=== PATIENT | female | born 1960 | race Caucasian/White ===

== ENCOUNTER 2018-11-03 01:54 | Outpatient (CLI) | payer MEDICARE, MEDICAID, SELFPAY ==
[2018-11-03 09:55] LABS: Abs Immature Grans 0.01 k/cumm (0.0-0.09); Absolute Basophil Count 0.05 k/cumm (0.0-0.2); Absolute Lymphocyte Count 2.64 k/cumm (1.2-3.4); Absolute Monocyte Count 0.51 k/cumm (0.11-0.7); Absolute Neutrophil Count 6.17 k/cumm (1.2-6.7); Basophils % 0.5; Eosinophils % 2.1; HCT 42.6 % (36.0-46.0); HGB 14.1 g/dL (12.0-15.5); Immature Grans % 0.1; Lymphocytes % 27.6; Mean Corp. HGB Concentration 33.1 g/dL (32.0-36.0); Mean Corpuscular Hemoglobin 30.7 pg (27.0-33.0); Mean Corpuscular Volume 92.8 fL (80-95); Mean Platelet Volume 9.3 fL (8.0-11.0); Monocytes % 5.3; Neutrophils % 64.4; Platelet Count 308 x1000/uL (130-400); RBC 4.59 m/cumm (4.00-5.20); RBC Distribution Width 12.3 % (11.7-14.6); White Blood Cell Count 9.58 k/cumm (4.4-10.8)
[2018-11-03 11:20] LABS: ALT 23 U/L (12-78); AST 18 U/L (15-37); Albumin 3.4 g/dL (3.4-5.0); Alkaline Phosphatase 339 U/L (46-116); Anion Gap 8.8 mmol/L (3-11); BUN 11 mg/dL (7-18); Bilirubin, Total 0.4 mg/dL (0.2-1.0); C-Reactive Protein 0.63 mg/dL (0.0-0.3); CO2 29.2 mmol/L (21.0-32.0); CREATININE 0.62 mg/dL (0.55-1.02); Calcium 9.4 mg/dL (8.5-10.1); Chloride 105 mmol/L (98-107); Glucose 104 mg/dL (70-100); Potassium 4.3 mmol/L (3.5-5.1); Sodium 143 mmol/L (136-145)
[2018-11-03 11:21] LABS: ESR 18 MM/HR (0-30)
== END 2018-11-03 02:14 ==
PROVIDERS: PCP Family Medicine; Visit Provider Internal Medicine Rheumatology
DX: M05.9 Rheumatoid arthritis with rheumatoid factor, unspecified (principal); Z79.899 Other long term (current) drug therapy
CPT/HCPCS: 36415; 80053; 85652; 85025; 86140

== ENCOUNTER 2018-12-28 09:54 | Emergency (ER) | payer MEDICARE, MEDICAID, SELFPAY ==
[2018-12-28 10:02] VITALS: BP 119/70; PULSE 95; RESP 20; TEMP 36.8; O2SAT 97
--- NOTE | 2018-12-28 10:15 | W.ED.GENAD ---
Discharge Plan Disposition Patient Disposition: HOME Condition: Stable Discharge Details Chief Complaint: RespSymp Clinical Impression: Infection, respiratory tract Primary Care Provider: Andreea Gould ED Provider: Tima Brandon Home Meds and New Rx's Prescriptions: New doxycycline hyclate 100 mg capsule 100 mg PO BID Qty: 14 RF: 0 benzonatate 200 mg capsule 200 mg PO TID PRN (Reason: cough) Qty: 30 RF: 0 Continued nicotine 14 mg/24 hr patch 24 hour 1 patch TD DAILY Qty: 21 RF: 2 hydroxychloroquine 200 MG tablet 200 mg PO DAILY Qty: 90 RF: 4 pentoxifylline 400 MG tablet extended release 400 mg PO BID Qty: 60 RF: 0 Discharge Instructions Instructions: Cold Symptoms (ED) Additional Instructions: If you begin having high fevers, severe shortness of breath difficulty breathing, or any other concerning symptoms please return to emergency department for reevaluation. Otherwise take medication as prescribed and for the full 7 days. You may also use [id number] Mucinex and stay hydrated and get plenty of rest. If not improving after the antibiotics please follow-up with your primary care provider for reassessment Referrals: Andreea Gould MD [Primary Care Provider] - (if not improving) Discharge Data Discharge Date/Time-TO BE ENTERED AT DEPARTURE: 12/28/18 10:31 Medical Decision Making Patient presenting to the emergency department for greater than 2 weeks of nasal congestion, sore throat, cough, chills. Patient does state some pain from coughing episodes. Patient states that her who is also in the emergency department for evaluation has had similar symptoms for the same amount of time. Patient denies any worsening of symptoms but does state that cough is been fairly persistent. She states chills but denies fever. Exam shows clear lung sounds but diminished in bases, normal cardiac exam without tachycardia, subjective nasal congestion heard during exam but no sinus tenderness, otherwise unremarkable HEENT exam. No signs of obvious meningitis, peritonsillar retropharyngeal abscess, epiglottitis. Patient does have history of lupus and emphysema. Given patient's duration of symptoms and that there has not been any improvement with report of productive cough I do feel that antibiotics are warranted but given clear lung sounds at this time I do not feel that radiological imaging of the chest is required given that this will not change treatment of patient and that patient is nontoxic in appearance with no signs of sepsis. Patient placed up on doxycycline for 7 days and also prescribed Tessalon Perles for cough suppressant. Patient was encouraged to stay hydrated and take Mucinex and follow-up with primary care provider if not improving over the next week. HPI General Mode of arrival: ambulatory. Date/Time Provider Initiated Documentation: 12/28/18 10:04. Limitations to Documentation: no limitations. History of Present Illness 58 year old F presents to the emergency department with the chief complaint of cold symptoms, described as moderate, with intensity rated at 6. and is localized to the chest. Patient started experiencing this week(s) (2+) and it has been constant. No relieving factors improve symptom(s), No exacerbating factors reported . Patient notes no other symptoms.. Patient did receive the following treatments prior to arrival, none Related Data Home Medications Medication Instructions Recorded Confirmed hydroxychloroquine 200 mg PO DAILY #90 tab-cap 08/04/15 12/28/18 pentoxifylline 400 mg PO BID #60 tab-cap 08/08/16 12/28/18 nicotine 14 mg/24 hr daily 1 patch TD DAILY #21 each 09/24/18 12/28/18 transdermal patch benzonatate 200 mg PO TID PRN #30 cap 12/28/18 doxycycline hyclate 100 mg PO BID #14 cap 12/28/18 Previous Rx's Medication Instructions Recorded nicotine 14 mg/24 hr daily 1 patch TD DAILY #21 each 09/24/18 transdermal patch benzonatate 200 mg PO TID PRN #30 cap 12/28/18 doxycycline hyclate 100 mg PO BID #14 cap 12/28/18 Allergies Allergy/AdvReac Type Severity Reaction Status Date / Time aspirin AdvReac Severe high dose Unverified 12/28/18 10:06 palpitations General Stated Complaint: RespSymp ENZO: 3 Review of Systems Constitutional Reports body ache(s), Reports chills, Denies fever(s), Denies headache(s) and Reports malaise Eyes Denies eye discharge ENT Reports as per HPI, Denies ear discharge, Denies otalgia, Denies headache(s), Reports nasal congestion, Reports nasal discharge, Denies neck pain, Denies sinus pain, Reports sinus pressure, Reports sore throat and Denies throat swelling Cardiovascular Reports chest pain and Denies dyspnea Respiratory Reports change in phlegm color, Reports cough, Reports excessive phlegm production, Denies pain on inspiration, Reports pain with cough and Denies dyspnea Musculoskeletal Denies joint swelling and Denies neck pain Integumentary/Breasts Denies rash Neurologic Denies headache(s) Allergic/Immunologic Denies throat swelling ON LICENSE OF [facility] Medical History Anxiety Hypertension Lichen planus Lupus Ovarian carcinoma PVD (peripheral vascular disease) Thromboangiitis obliterans (Buerger's disease) Tobacco use Surgical History Abdominal hysterectomy (07/02/16) Colonoscopy - MAC (02/14/18) Family History Mother Essential hypertension Hyperlipidemia Stroke Father Lung cancer Sister No problems noted. Sister No problems noted. Sister No problems noted. Sister No problems noted. Sister No problems noted. Paternal Grandfather Stroke Social History household members: spouse highest education level completed: high school graduate frequency: 3-4 times per week duration: 15-30 minutes/day Smoking and Tabacco status: Former Tobacco Use alcohol intake: former walt/hindu: No preference special walt needs: No Exam Const General: cooperative, comfortable and no acute distress Orientation: alert and awake HENWA Head: normal to inspection, normocephalic and atraumatic Ears: hearing grossly normal bilaterally and TM's normal bilaterally General nose exam: external nose normal Face and sinus: normal facial exam, sinuses nontender and no erythema Mouth: oral mucosae normal, no drooling, no muffled voice and no trismus Throat: posterior oropharynx normal, tonsils normal and uvula midline Neck Neck: normal visual inspection, full ROM, no lymphadenopathy, no meningeal signs, trachea midline and supple Resp Effort & Inspection: normal respiratory effort, able to speak in complete sentences and cough Quality of cough: dry Auscultation: clear to auscultation bilaterally and diminished lung sounds bilaterally in the lower lung plaza Cardio Rate: regular rate and not tachycardic Rhythm: regular rhythm Heart Sounds: S1 normal, S2 normal, normal S1 and S2, no click, no gallops, no murmurs and no rubs Skin General skin exam: no rashes or lesions noted and dry skin (warm) Neuro General: alert, awake, oriented x3, gait normal and moves all extremities Cognition: normal cognition Speech: speech normal Course Vital Signs Temperature 36.8 C 12/28/18 10:02 Pulse 95 H 12/28/18 10:02 Respiratory Rate 20 12/28/18 10:02 Blood Pressure 119/70 12/28/18 10:02 Pulse Oximetry 97 12/28/18 10:02 Temperature 36.8 C 12/28/18 10:02 Temperature Source Temporal Artery Scan 12/28/18 10:02 Pulse 95 H 12/28/18 10:02 Respiratory Rate 20 12/28/18 10:02 Respiratory Effort Non-Labored 12/28/18 10:07 Respiratory Depth Normal 12/28/18 10:07 Blood Pressure 119/70 12/28/18 10:02 Blood Pressure Position Sitting 12/28/18 10:02 Pulse Oximetry 97 12/28/18 10:02 Oxygen Delivery Method Room Air 12/28/18 10:02 Oxygen Flow Rate 0 12/28/18 10:02 Pain Level 7 12/28/18 10:02
--- NOTE | 2018-12-28 10:22 | ED.GENADUL_ITS ---
Discharge Plan Disposition Patient Disposition: HOME Condition: Stable Discharge Details Chief Complaint: RespSymp Clinical Impression: Infection, respiratory tract Primary Care Provider: Andreea Gould ED Provider: Tima Brandon Home Meds and New Rx's Prescriptions: New doxycycline hyclate 100 mg capsule 100 mg PO BID Qty: 14 RF: 0 benzonatate 200 mg capsule 200 mg PO TID PRN (Reason: cough) Qty: 30 RF: 0 Continued nicotine 14 mg/24 hr patch 24 hour 1 patch TD DAILY Qty: 21 RF: 2 hydroxychloroquine 200 MG tablet 200 mg PO DAILY Qty: 90 RF: 4 pentoxifylline 400 MG tablet extended release 400 mg PO BID Qty: 60 RF: 0 Discharge Instructions Instructions: Cold Symptoms (ED) Additional Instructions: If you begin having high fevers, severe shortness of breath difficulty breathing, or any other concerning symptoms please return to emergency department for reevaluation. Otherwise take medication as prescribed and for the full 7 days. You may also use [id number] Mucinex and stay hydrated and get plenty of rest. If not improving after the antibiotics please follow-up with your primary care provider for reassessment Referrals: Andreea Gould MD [Primary Care Provider] - (if not improving) Discharge Data Discharge Date/Time-TO BE ENTERED AT DEPARTURE: 12/28/18 10:31 Medical Decision Making Patient presenting to the emergency department for greater than 2 weeks of nasal congestion, sore throat, cough, chills. Patient does state some pain from coughing episodes. Patient states that her who is also in the emergency department for evaluation has had similar symptoms for the same amount of time. Patient denies any worsening of symptoms but does state that cough is been fairl y persistent. She states chills but denies fever. Exam shows clear lung sounds but diminished in bases, normal cardiac exam without tachycardia, subjective nasal congestion heard during exam but no sinus tenderness, otherwise unremarkable HEENT exam. No signs of obvious meningitis, peritonsillar retropharyngeal abscess, epiglottitis. Patient does have history of lupus and emphysema. Given patient's duration of symptoms and that there has not been any improvement with report of productive cough I do feel that antibiotics are warranted but given clear lung sounds at this time I do not feel that radiological imaging of the chest is required given that this will not change treatment of patient and that patient is nontoxic in appearance with no signs of sepsis. Patient placed up on doxycycline for 7 days and also prescribed Tessalon Perles for cough suppressant. Patient was encouraged to stay hydrated and take Mucinex and follow-up with primary care provider if not improving over the next week. HPI General Mode of arrival: ambulatory . Date/Time Provider Initiated Documentation: 12/28/18 10:04 . Limitations to Documentation: no limitations . History of Present Illness 58 year old F presents to the emergency department with the chief complaint of cold symptoms, described as moderate, with intensity rated at 6. and is localized to the chest. Patient started experiencing this week(s) (2+) and it has been constant. No relieving factors improve symptom(s), No exacerbating factors reported . Patient notes no other symptoms.. Patient did receive the following treatments prior to arrival, none Related Data Home Medications Medication Instructions Recorded Confirmed hydroxychloroquine 200 mg PO DAILY #90 tab-cap 08/04/15 12/28/18 pentoxifylline 400 mg PO BID #60 tab-cap 08/08/16 12/28/18 nicotine 14 mg/24 hr daily 1 patch TD DAILY #21 each 09/24/18 12/28/18 transdermal patch benzonatate 200 mg PO TID PRN #30 cap 12/28/18 doxycycline hyclate 100 mg PO BID #14 cap 12/28/18 Previous Rx's Medication Instructions Recorded nicotine 14 mg/24 hr daily 1 patch TD DAILY #21 each 09/24/18 transdermal patch benzonatate 200 mg PO TID PRN #30 cap 12/28/18 doxycycline hyclate 100 mg PO BID #14 cap 12/28/18 Allergies Allergy/AdvReac Type Severity Reaction Status Date / Time aspirin AdvReac Severe high dose Unverified 12/28/18 10:06 palpitations General Stated Complaint: RespSymp ENZO: 3 Review of Systems Constitutional Reports body ache(s), Reports chills, Denies fever(s), Denies headache(s) and Reports malaise Eyes Denies eye discharge ENT Reports as per HPI, Denies ear discharge, Denies otalgia, Denies headache(s), Reports nasal congestion, Reports nasal discharge, Denies neck pain, Denies sinus pain, Reports sinus pressure, Reports sore throat and Denies throat swelling Cardiovascular Reports chest pain and Denies dyspnea Respiratory Reports change in phlegm color, Reports cough, Reports excessive phlegm production, Denies pain on inspiration, Reports pain with cough and Denies dyspnea Musculoskeletal Denies joint swelling and Denies neck pain Integumentary/Breasts Denies rash Neurologic Denies headache(s) Allergic/Immunologic Denies throat swelling PFS Medical History Anxiety Hypertension Lichen planus Lupus Ovarian carcinoma PVD (peripheral vascular disease) Thromboangiitis obliterans (Buerger's disease) Tobacco use Surgical History Abdominal hysterectomy (07/02/16) Colonoscopy - MAC (02/14/18) Family History Mother Essential hypertension Hyperlipidemia Stroke Father Lung cancer Sister No problems noted. Sister No problems noted. Sister No problems noted. Sister No problems noted. Sister No problems noted. Paternal Grandfather Stroke Social History household members: spouse highest education level completed: high school graduate frequency: 3-4 times per week duration: 15-30 minutes/day Smoking and Tabacco status: Former Tobacco Use alcohol intake: former walt/jewish: No preference special walt needs: No Exam Const General: cooperative, comfortable and no acute distress Orientation: alert and awake HENMT Head: normal to inspection, normocephalic and atraumatic Ears: hearing grossly normal bilaterally and TM's normal bilaterally General nose exam: external nose normal Face and sinus: normal facial exam, sinuses nontender and no erythema Mouth: oral mucosae normal, no drooling, no muffled voice and no trismus Throat: posterior oropharynx normal, tonsils normal and uvula midline Neck Neck: normal visual inspection, full ROM, no lymphadenopathy, no meningeal signs, trachea midline and supple Resp Effort & Inspection: normal respiratory effort, able to speak in complete sentences and cough Quality of cough: dry Auscultation: clear to auscultation bilaterally and diminished lung sounds bilaterally in the lower lung plaza Cardio Rate: regular rate and not tachycardic Rhythm: regular rhythm Heart Sounds: S1 normal, S2 normal, normal S1 and S2, no click, no gallops, no murmurs and no rubs Skin General skin exam: no rashes or lesions noted and dry skin (warm) Neuro General: alert, awake, oriented x3, gait normal and moves all extremities Cognition: normal cognition Speech: speech normal Course Vital Signs Temperature 36.8 C 12/28/18 10:02 Pulse 95 H 12/28/18 10:02 Respiratory Rate 20 12/28/18 10:02 Blood Pressure 119/70 12/28/18 10:02 Pulse Oximetry 97 12/28/18 10:02 Temperature 36.8 C 12/28/18 10:02 Temperature Source Temporal Artery Scan 12/28/18 10:02 Pulse 95 H 12/28/18 10:02 Respiratory Rate 20 12/28/18 10:02 Respiratory Effort Non-Labored 12/28/18 10:07 Respiratory Depth Normal 12/28/18 10:07 Blood Pressure 119/70 12/28/18 10:02 Blood Pressure Position Sitting 12/28/18 10:02 Pulse Oximetry 97 12/28/18 10:02 Oxygen Delivery Method Room Air 12/28/18 10:02 Oxygen Flow Rate 0 12/28/18 10:02 Pain Level 7 12/28/18 10:02
[2018-12-28 10:31] VITALS: BP 119/70; PULSE 95; RESP 20; TEMP 36.8; O2SAT 97
[2018-12-28] MEDS: Doxycycline Hyclate 100 MG CAP PO (10:31)
== END 2018-12-28 10:31 | disposition home or self-care (01) ==
PROVIDERS: Emergency Provider Nurse Practitioner Family; PCP Family Medicine
DX: J06.9 Acute upper respiratory infection, unspecified (principal); I10 Essential (primary) hypertension; Z87.891 Personal history of nicotine dependence
CPT/HCPCS: 99283

== ENCOUNTER 2019-02-09 01:54 | Outpatient (CLI) | payer MEDICARE, SELFPAY ==
[2019-02-09 11:28] LABS: Abs Immature Grans 0.03 k/cumm (0.0-0.09); Absolute Basophil Count 0.05 k/cumm (0.0-0.2); Absolute Eosinophil Count 0.22 k/cumm (0.0-0.7); Absolute Lymphocyte Count 3.14 k/cumm (1.2-3.4); Absolute Monocyte Count 0.69 k/cumm (0.11-0.7); Absolute Neutrophil Count 6.07 k/cumm (1.2-6.7); Basophils % 0.5; Eosinophils % 2.2; HCT 41.4 % (36.0-46.0); HGB 13.6 g/dL (12.0-15.5); Immature Grans % 0.3; Lymphocytes % 30.8; Mean Corp. HGB Concentration 32.9 g/dL (32.0-36.0); Mean Corpuscular Hemoglobin 30.1 pg (27.0-33.0); Mean Corpuscular Volume 91.6 fL (80-95); Mean Platelet Volume 9.2 fL (8.0-11.0); Monocytes % 6.8; Neutrophils % 59.4; Platelet Count 329 x1000/uL (130-400); RBC 4.52 m/cumm (4.00-5.20); RBC Distribution Width 12.2 % (11.7-14.6)
[2019-02-09 12:14] LABS: ALT 26 U/L (12-78); AST 19 U/L (15-37); Albumin 3.6 g/dL (3.4-5.0); Alkaline Phosphatase 420 U/L (46-116); Anion Gap 9.2 mmol/L (3-11); BUN 10 mg/dL (7-18); Bilirubin, Total 0.3 mg/dL (0.2-1.0); CO2 28.8 mmol/L (21.0-32.0); CREATININE 0.62 mg/dL (0.55-1.02); Calcium 9.3 mg/dL (8.5-10.1); Chloride 101 mmol/L (98-107); Glucose 89 mg/dL (70-100); Sodium 139 mmol/L (136-145); Total Protein 7.5 g/dL (6.4-8.2)
[2019-02-10 09:34] LABS: CA 125 9 U/mL (0-30)
== END 2019-02-09 02:14 ==
PROVIDERS: Obstetrics & Gynecology Gynecologic Oncology; PCP Family Medicine; Visit Provider Radiology Radiation Oncology
DX: C56.9 Malignant neoplasm of unspecified ovary (principal)
CPT/HCPCS: 36415; 80053; 86304; 85025

== ENCOUNTER 2019-03-10 02:29 | Outpatient (CLI) | payer MEDICARE, SELFPAY ==
[2019-03-10 10:34] LABS: HCT 37.4 % (36.0-46.0); HGB 12.1 g/dL (12.0-15.5); Mean Corp. HGB Concentration 32.4 g/dL (32.0-36.0); Mean Corpuscular Hemoglobin 30.1 pg (27.0-33.0); Mean Platelet Volume 10.8 fL (8.0-11.0); Platelet Count 198 x1000/uL (130-400); RBC 4.02 m/cumm (4.00-5.20); RBC Distribution Width 12.9 % (11.7-14.6); White Blood Cell Count 12.99 k/cumm (4.4-10.8)
[2019-03-10 10:51] LABS: Absolute Basophil Count 0.13 k/cumm (0.0-0.2); Absolute Eosinophil Count 0.13 k/cumm (0.0-0.7); Absolute Monocyte Count 1.43 k/cumm (0.11-0.7); Absolute Neutrophil Count 8.83 k/cumm (1.2-6.7)
[2019-03-10 10:52] LABS: Diff Comment Manual Differential; RBC Morphology Normal
== END 2019-03-10 02:49 ==
PROVIDERS: PCP Family Medicine; Visit Provider Obstetrics & Gynecology Gynecologic Oncology
DX: C56.9 Malignant neoplasm of unspecified ovary (principal)
CPT/HCPCS: 36415; 85025

== ENCOUNTER 2019-03-17 09:22 | Outpatient (CLI) | payer MEDICARE, SELFPAY ==
[2019-03-17 09:46] LABS: Absolute Basophil Count 0.07 k/cumm (0.0-0.2); Absolute Eosinophil Count 0.03 k/cumm (0.0-0.7); Absolute Lymphocyte Count 1.63 k/cumm (1.2-3.4); Absolute Monocyte Count 0.63 k/cumm (0.11-0.7); Absolute Neutrophil Count 8.14 k/cumm (1.2-6.7); Basophils % 0.7; Eosinophils % 0.3; HCT 38.4 % (36.0-46.0); HGB 12.6 g/dL (12.0-15.5); Immature Grans % 0.9; Lymphocytes % 15.4; Mean Corp. HGB Concentration 32.8 g/dL (32.0-36.0); Mean Corpuscular Hemoglobin 30.2 pg (27.0-33.0); Mean Corpuscular Volume 92.1 fL (80-95); Mean Platelet Volume 9.4 fL (8.0-11.0); Monocytes % 5.9; Neutrophils % 76.8; Platelet Count 256 x1000/uL (130-400); RBC 4.17 m/cumm (4.00-5.20); RBC Distribution Width 13.5 % (11.7-14.6)
== END 2019-03-17 09:42 ==
PROVIDERS: PCP Family Medicine; Visit Provider Obstetrics & Gynecology Gynecologic Oncology
DX: C56.9 Malignant neoplasm of unspecified ovary (principal)
CPT/HCPCS: 36415; 85025

== ENCOUNTER 2019-03-21 02:16 | Outpatient (CLI) | payer MEDICARE, SELFPAY ==
[2019-03-21 09:38] LABS: Abs Immature Grans 0.02 k/cumm (0.0-0.09); Absolute Basophil Count 0.03 k/cumm (0.0-0.2); Absolute Eosinophil Count 0.01 k/cumm (0.0-0.7); Absolute Lymphocyte Count 1.16 k/cumm (1.2-3.4); Absolute Monocyte Count 0.49 k/cumm (0.11-0.7); Absolute Neutrophil Count 5.65 k/cumm (1.2-6.7); Basophils % 0.4; Eosinophils % 0.1; HCT 39.6 % (36.0-46.0); HGB 12.6 g/dL (12.0-15.5); Immature Grans % 0.3; Lymphocytes % 15.8; Mean Corp. HGB Concentration 31.8 g/dL (32.0-36.0); Mean Corpuscular Hemoglobin 29.4 pg (27.0-33.0); Mean Corpuscular Volume 92.3 fL (80-95); Mean Platelet Volume 9.5 fL (8.0-11.0); Monocytes % 6.7; Neutrophils % 76.7; Platelet Count 347 x1000/uL (130-400); RBC 4.29 m/cumm (4.00-5.20); RBC Distribution Width 13.7 % (11.7-14.6); White Blood Cell Count 7.36 k/cumm (4.4-10.8)
[2019-03-21 09:51] LABS: ALT 22 U/L (12-78); AST 16 U/L (15-37); Alkaline Phosphatase 174 U/L (46-116); Anion Gap 6.7 mmol/L (3-11); BUN 4 mg/dL (7-18); Bilirubin, Total 0.2 mg/dL (0.2-1.0); CO2 28.3 mmol/L (21.0-32.0); CREATININE 0.66 mg/dL (0.55-1.02); Calcium 8.2 mg/dL (8.5-10.1); Chloride 104 mmol/L (98-107); Glucose 113 mg/dL (70-100); Potassium 3.7 mmol/L (3.5-5.1); Sodium 139 mmol/L (136-145); Total Protein 7.1 g/dL (6.4-8.2)
[2019-03-23 11:13] LABS: CA 125 6 U/mL (0-30)
== END 2019-03-21 02:36 ==
PROVIDERS: Obstetrics & Gynecology Gynecologic Oncology; PCP Family Medicine; Visit Provider Family Medicine
DX: C56.9 Malignant neoplasm of unspecified ovary (principal)
CPT/HCPCS: 36415; 80053; 86304; 85025

== ENCOUNTER 2019-03-31 01:44 | Outpatient (CLI) | payer MEDICARE, SELFPAY ==
[2019-03-31 10:10] LABS: Abs Immature Grans 1.55 k/cumm (0.0-0.09); HCT 34.1 % (36.0-46.0); HGB 11.2 g/dL (12.0-15.5); Mean Corp. HGB Concentration 32.8 g/dL (32.0-36.0); Mean Corpuscular Hemoglobin 30.5 pg (27.0-33.0); Mean Corpuscular Volume 92.9 fL (80-95); Mean Platelet Volume 10.6 fL (8.0-11.0); RBC 3.67 m/cumm (4.00-5.20)
[2019-03-31 10:40] LABS: Absolute Basophil Count 0.14 k/cumm (0.0-0.2); Absolute Eosinophil Count 0.42 k/cumm (0.0-0.7); Absolute Lymphocyte Count 1.83 k/cumm (1.2-3.4); Absolute Monocyte Count 4.09 k/cumm (0.11-0.7); Absolute Neutrophil Count 7.61 k/cumm (1.2-6.7); Platelet Count 175 x1000/uL (130-400)
[2019-03-31 10:41] LABS: Diff Comment Manual Differential
[2019-03-31 10:42] LABS: RBC Morphology Normal
== END 2019-03-31 02:04 ==
PROVIDERS: PCP Family Medicine; Visit Provider Obstetrics & Gynecology Gynecologic Oncology
DX: C56.9 Malignant neoplasm of unspecified ovary (principal)
CPT/HCPCS: 36415; 85025

== ENCOUNTER 2019-04-06 02:47 | Outpatient (CLI) | payer MEDICARE, SELFPAY ==
[2019-04-06 10:24] LABS: HCT 35.2 % (36.0-46.0); HGB 11.4 g/dL (12.0-15.5); Mean Corp. HGB Concentration 32.4 g/dL (32.0-36.0); Mean Corpuscular Hemoglobin 30.6 pg (27.0-33.0); Mean Corpuscular Volume 94.4 fL (80-95); Mean Platelet Volume 10.2 fL (8.0-11.0); Platelet Count 291 x1000/uL (130-400); RBC 3.73 m/cumm (4.00-5.20); RBC Distribution Width 14.7 % (11.7-14.6); White Blood Cell Count 17.98 k/cumm (4.4-10.8)
[2019-04-06 11:30] LABS: Absolute Neutrophil Count 15.46 k/cumm (1.2-6.7); Atypical Lymphocytes % 1
[2019-04-06 11:31] LABS: Absolute Monocyte Count 0.72 k/cumm (0.11-0.7); Diff Comment Manual Differential; RBC Morphology Normal
== END 2019-04-06 03:07 ==
PROVIDERS: PCP Family Medicine; Visit Provider Obstetrics & Gynecology Gynecologic Oncology
DX: C56.9 Malignant neoplasm of unspecified ovary (principal)
CPT/HCPCS: 36415; 85025

== ENCOUNTER 2019-04-10 01:14 | Outpatient (CLI) | payer MEDICARE, SELFPAY ==
[2019-04-10 15:25] LABS: Abs Immature Grans 0.03 k/cumm (0.0-0.09); Absolute Basophil Count 0.04 k/cumm (0.0-0.2); Absolute Eosinophil Count 0.02 k/cumm (0.0-0.7); Absolute Lymphocyte Count 1.85 k/cumm (1.2-3.4); Absolute Monocyte Count 0.62 k/cumm (0.11-0.7); Absolute Neutrophil Count 6.44 k/cumm (1.2-6.7); Basophils % 0.4; Eosinophils % 0.2; HCT 34.3 % (36.0-46.0); HGB 11.1 g/dL (12.0-15.5); Immature Grans % 0.3; Lymphocytes % 20.6; Mean Corp. HGB Concentration 32.4 g/dL (32.0-36.0); Mean Corpuscular Volume 92.7 fL (80-95); Mean Platelet Volume 9.4 fL (8.0-11.0); Monocytes % 6.9; Neutrophils % 71.6; Platelet Count 326 x1000/uL (130-400)
[2019-04-10 16:14] LABS: ALT 30 U/L (12-78); AST 20 U/L (15-37); Albumin 3.3 g/dL (3.4-5.0); Alkaline Phosphatase 136 U/L (46-116); Anion Gap 9.5 mmol/L (3-11); BUN 11 mg/dL (7-18); Bilirubin, Total 0.3 mg/dL (0.2-1.0); CO2 26.5 mmol/L (21.0-32.0); CREATININE 0.61 mg/dL (0.55-1.02); Calcium 8.8 mg/dL (8.5-10.1); Chloride 101 mmol/L (98-107); Glucose 113 mg/dL (70-100); Potassium 3.7 mmol/L (3.5-5.1); Sodium 137 mmol/L (136-145); Total Protein 6.7 g/dL (6.4-8.2)
== END 2019-04-10 01:34 ==
PROVIDERS: PCP Family Medicine; Visit Provider Obstetrics & Gynecology Gynecologic Oncology
DX: C56.9 Malignant neoplasm of unspecified ovary (principal)
CPT/HCPCS: 36415; 80053; 85025

== ENCOUNTER 2019-04-17 12:17 | Emergency (ER) | payer MEDICARE, SELFPAY ==
[2019-04-17] VITALS (12 sets, daily range): BP systolic 103–119; BP diastolic 60–93; PULSE 91–101; RESP 16–33; TEMP 36.5; O2SAT 92–97
--- NOTE | 2019-04-17 12:58 | ED.GENADUL_ITS ---
Discharge Plan Disposition Patient Disposition: HOME Condition: Good Discharge Details Chief Complaint: SOB Clinical Impression: Oropharyngeal candidiasis, Dyspnea, History of COPD, History of recent chemotherapy Primary Care Provider: Andreea Gould ED Provider: Kristy Salazar Home Meds and New Rx's Prescriptions: New nystatin 100,000 unit/mL suspension 5 ml PO QID 10 Days Qty: 200 RF: 0 Continued hydroxychloroquine 200 MG tablet 200 mg PO DAILY Qty: 90 RF: 4 pentoxifylline 400 MG tablet extended release 400 mg PO BID Qty: 60 RF: 0 lorazepam 0.5 mg Tablet 0.5 mg PO PRN PRNRF: 0 oxycodone 10 mg Tablet 10 mg PO PRN PRNRF: 0 Discharge Instructions Instructions: Oral Candidiasis (ED), Dyspnea (ED) Additional Instructions: Drink plenty of fluids and get plenty of rest. Use the nystatin solution as directed. Use the albuterol inhaler as needed and directed. Call your oncologist today to schedule a follow-up appointment for reevaluation next week. Return immediately to the emergency department with any worsening or new concerning symptoms. 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 Vitals within normal limits. Afebrile. Patient appears nontoxic. She has noted thrush to tongue and posterior pharynx. Diminished breath sounds throughout with scattered rhonchi but no obvious wheezing. No signs of airway compromise or respiratory distress. Differential diagnosis includes strep pharyngitis, pneumonia, NC, PE, COPD exacerbation, viral syndrome, chemotherapy reaction, electrolyte abnormality. EKG notes a rate of 91 and sinus with no acute ST findings. Will place an IV, small bolus IV fluids, labs, urinalysis, rapid strep, CT chest. Will give Magic mouthwash and DuoNeb and reassess. 1430 --labs and imaging reviewed. White blood cell count 13. 10 bands. Mag 1.3, will replete. Troponin negative. Urinalysis negative. CT chest negative for pneumonia, PE, dissection. Patient states she feels much better. Breath sounds improved. 1500 --discussed with [facility] oncology cost controller Dr. Gama --state that the leukocytosis and bandemia is an expected finding after patient's chemotherapy treatment with carboTaxol and carboplatin. Discussed that patient feels better, is hemodynamically stable, and appears nontoxic -no other acute recommendations at this time and agreeable with plan for discharge home. Will send home with a prescription for nystatin as well as albuterol inhaler. Discussed with patient that I do not think she needs steroids or antibiotics at this time and she is agreeable. She is instructed to call her oncologist to schedule a follow-up appointment for reevaluation and to return here with any worsening symptoms. Medical Records Medical records reviewed: Yes I reviewed the patient's medical records. Imaging Data Radiologic Study: Radiologist's impression: CT SCAN OF THE CHEST: CT scan of the chest was performed according to the pulmonary embolus protocol. There are nodular densities seen in the right lobe of the thyroid gland. Nonemergent thyroid ultrasound may be considered for further evaluation. There is no evidence of a pulmonary embolus. The thoracic aorta is of normal caliber. No aneurysm or dissection is seen. The heart size is within normal limits. No evidence of a pericardial effusion is seen. No evidence of right ventricular dysfunction is present. No significant thoracic adenopathy, pleural effusion or pneumothorax is identified. Mild emphysematous changes are seen in the lungs. No focal consolidating infiltrates are present. There is mild atelectasis in the dependent portions of the lungs. No acute osseous abnormalities identified. IMPRESSION: No evidence of a pulmonary embolus, thoracic aortic dissection or aneurysm. Lab Data Lab results reviewed: Yes I reviewed the patient's lab results. 04/17/19 13:57 Blood Blood Culture - Pending 04/17/19 13:45 Blood Blood Culture - Pending Laboratory Tests Range/Units 04/17/19 04/17/19 04/17/19 13:10 13:10 13:26 WBC (4.4-10.8) k/cumm 37.19 H* RBC (4.00-5.20) m/cumm 3.62 L Hgb (12.0-15.5) g/dL 11.2 L Hct (36.0-46.0) % 34.3 L MCV (80-95) fL 94.8 MCH (27.0-33.0) pg 30.9 MCHC (32.0-36.0) g/dL 32.7 RDW (11.7-14.6) % 15.0 H Plt Count (130-400) x1000/uL 154 D MPV (8.0-11.0) fL 10.7 Immature Gran % See Differential Neutrophils % 82.0 Band Neutrophils % % 10.0 Lymphocytes % 3.0 Monocytes % 1.0 Eosinophils % 0.0 Basophils % 0.0 Metamyelocytes % % 1.0 Myelocytes % % 3.0 Promyelocytes % % 0 Absolute Neutrophils (1.2-6.7) k/cumm 34.21 H Absolute Lymphocytes (1.2-3.4) k/cumm 1.12 L Absolute Monocytes (0.11-0.7) k/cumm 0.37 Absolute Eosinophils (0.0-0.7) k/cumm 0.00 Absolute Basophils (0.0-0.2) k/cumm 0.00 Differential Comment Manual differential RBC Morphology See below Anisocytosis 1+ Target Cells 2+ Sodium (136-145) mmol/L 134 L Potassium (3.5-5.1) mmol/L 3.5 Chloride (98-107) mmol/L 98 Carbon Dioxide (21.0-32.0) mmol/L 31.1 Anion Gap (3-11) mmol/L 4.9 BUN (7-18) mg/dL 12 Creatinine (0.55-1.02) mg/dL 0.52 L Estimated GFR/1.73 m2 (mL/min/1.73m2) >= 60.00 Glucose (70-100) mg/dL 99 Lactate (0.6-1.4) mmol/l Calcium (8.5-10.1) mg/dL 8.8 Magnesium (1.8-2.4) mg/dL 1.3 L Total Bilirubin (0.2-1.0) mg/dL 0.6 AST (15-37) U/L 15 ALT (12-78) U/L 20 Alkaline Phosphatase (46-116) U/L 118 H Troponin I (0.00-0.06) ng/mL < 0.02 Total Protein (6.4-8.2) g/dL 6.2 L Albumin (3.4-5.0) g/dL 2.9 L Urine Color (Yellow) Yellow Urine Clarity Clear Urine pH (5-8) 6.0 Ur Specific [place] (1.005-1.025) <= 1.005 Urine Protein (Negative) mg/dL Negative Urine Ketones (Negative) mg/dL Negative Urine Blood (Negative) Trace-intact H Urine Nitrite (Negative) Negative Urine Bilirubin (Negative) Negative Urine Urobilinogen (Up TO 0.2) EU/dL 0.2 Ur Leukocyte Esterase (Negative) Negative Urine RBC (0-2) 0-2 Urine WBC (0-5) HPF 0-2 Ur Epithelial Cells (Negative) HPF Rare Urine Crystals (Negative) HPF Negative Urine Bacteria (Negative) HPF Negative Urine Casts (Negative) LPF Negative Urine Mucus (Negative) Negative Ur Culture Indicated? No Urine Glucose (Negative) mg/dL Negative Range/Units 04/17/19 13:57 WBC (4.4-10.8) k/cumm RBC (4.00-5.20) m/cumm Hgb (12.0-15.5) g/dL Hct (36.0-46.0) % MCV (80-95) fL MCH (27.0-33.0) pg MCHC (32.0-36.0) g/dL RDW (11.7-14.6) % Plt Count (130-400) x1000/uL MPV (8.0-11.0) fL Immature Gran % Neutrophils % Band Neutrophils % % Lymphocytes % Monocytes % Eosinophils % Basophils % Metamyelocytes % % Myelocytes % % Promyelocytes % % Absolute Neutrophils (1.2-6.7) k/cumm Absolute Lymphocytes (1.2-3.4) k/cumm Absolute Monocytes (0.11-0.7) k/cumm Absolute Eosinophils (0.0-0.7) k/cumm Absolute Basophils (0.0-0.2) k/cumm Differential Comment RBC Morphology Anisocytosis Target Cells Sodium (136-145) mmol/L Potassium (3.5-5.1) mmol/L Chloride (98-107) mmol/L Carbon Dioxide (21.0-32.0) mmol/L Anion Gap (3-11) mmol/L BUN (7-18) mg/dL Creatinine (0.55-1.02) mg/dL Estimated GFR/1.73 m2 (mL/min/1.73m2) Glucose (70-100) mg/dL Lactate (0.6-1.4) mmol/l 1.0 Calcium (8.5-10.1) mg/dL Magnesium (1.8-2.4) mg/dL Total Bilirubin (0.2-1.0) mg/dL AST (15-37) U/L ALT (12-78) U/L Alkaline Phosphatase (46-116) U/L Troponin I (0.00-0.06) ng/mL Total Protein (6.4-8.2) g/dL Albumin (3.4-5.0) g/dL Urine Color (Yellow) Urine Clarity Urine pH (5-8) Ur Specific [place] (1.005-1.025) Urine Protein (Negative) mg/dL Urine Ketones (Negative) mg/dL Urine Blood (Negative) Urine Nitrite (Negative) Urine Bilirubin (Negative) Urine Urobilinogen (Up TO 0.2) EU/dL Ur Leukocyte Esterase (Negative) Urine RBC (0-2) Urine WBC (0-5) HPF Ur Epithelial Cells (Negative) HPF Urine Crystals (Negative) HPF Urine Bacteria (Negative) HPF Urine Casts (Negative) LPF Urine Mucus (Negative) Ur Culture Indicated? Urine Glucose (Negative) mg/dL ECG Data Attestation: I personally reviewed and interpreted this ECG (s) as follows: Interpretation: Rate of 91, sinus, no acute ST elevation or depression. QTc 394. QRS 92 HPI General Mode of arrival: ambulatory . Date/Time Provider Initiated Documentation: 04/17/19 12:18 . Limitations to Documentation: no limitations . Information obtained by: patient . HPI Narrative: Patient is a 58-year-old fe male with a history of metastatic ovarian cancer to lung and bone, hypertension, COPD, anxiety, peripheral vascular disease, lupus who presents with sore throat, shortness of breath and body aches for the past 2 days. Patient states she had her last chemo treatment 3 days ago at [facility] and developed a reaction during the infusion with arm and facial flushing. She states the facial and arm flu shing resolved with Benadryl and steroids and then shortly after she developed shortness of breath, body aches and sore throat. She states since then she has had difficulty breathing worse with laying flat and with exertion. She admits to cough with white mucus. She also admits to intermittent dizziness. She states she has been drinking but eating less than usual. She denies any known fever, vomiting or diarrhea. She states she was first diagnosed with ovarian cancer in 2016 and was told it progressed to her lung and bone recently. She restarted her chemo last month and has had her third treatment since then. She states her second treatment earlier this month also resulted in facial and forearm flushing as well as shortness of breath but states the symptoms are much worse this time. Related Data Home Medications Medication Instructions Recorded Confirmed hydroxychloroquine 200 mg PO DAILY #90 tab-cap 08/04/15 04/17/19 pentoxifylline 400 mg PO BID #60 tab-cap 08/08/16 04/17/19 lorazepam 0.5 mg PO PRN PRN 04/17/19 04/17/19 nystatin 5 ml PO QID 10 Days #200 ml 04/17/19 oxycodone 10 mg PO PRN PRN 04/17/19 04/17/19 Previous Rx's Medication Instructions Recorded nystatin 5 ml PO QID 10 Days #200 ml 04/17/19 Allergies Allergy/AdvReac Type Severity Reaction Status Date / Time aspirin AdvReac Severe high dose Unverified 04/17/19 12:27 palpitations General Stated Complaint: SOB ENZO: 3 Review of Systems Review of Systems All systems reviewed & are unremarkable except as noted in HPI and below Constitutional Reports as per HPI, Denies chills and Denies fever(s) Eyes Denies blurry vision ENT Reports dizziness, Reports sore throat and Denies throat swelling Cardiovascular Denies chest pain and Reports dyspnea Respiratory Denies cough and Reports dyspnea Gastrointestinal Denies abdominal pain, Denies diarrhea and Denies vomiting Genitourinary Denies hematuria and Denies dysuria Musculoskeletal Denies back pain and Denies numbness Integumentary/Breasts Denies lesions and Denies rash Neurologic Reports dizziness, Denies focal weakness and Denies numbness Allergic/Immunologic Denies throat swelling [facility] Medical History Anxiety Hypertension Lichen planus Lupus Ovarian carcinoma PVD (peripheral vascular disease) Thromboangiitis obliterans (Buerger's disease) Tobacco use Surgical History Abdominal hysterectomy (07/02/16) Colonoscopy - MAC (02/14/18) Family History Mother Essential hypertension Hyperlipidemia Stroke Father Lung cancer Sister No problems noted. Sister No problems noted. Sister No problems noted. Sister No problems noted. Sister No problems noted. Paternal Grandfather Stroke Social History Smoking/Tobacco Use Status: Former Tobacco Use Alcohol Intake: former Drug use: Never Household members: spouse Duration: 15-30 minutes/day Frequency: 3-4 times per week Estefany/Anglican: No preference Special estefany needs: No Do you feel safe at home: Yes Do you feel safe in your relationship?: Yes Exam Const General: cooperative and healthy appearing Orientation: alert and awake HENMT Head: normal to inspection Ears: hearing grossly normal bilaterally, external ears normal and TM's normal bilaterally General nose exam: external nose normal Face and sinus: normal facial exam Mouth: oral mucosa abnormal white patches (noted on tongue, palate, posterior pharynx) Teeth and gingiva: dentition normal Throat: posterior oropharynx abnormal other (white patches, erythema); no exudates Eyes General: appearance normal, both eyes and all related structures Eyelids: eyelids normal Pupils: PERRL EOM: EOM intact bilaterally Neck Neck: normal visual inspection Lymphatic: no lymphadenopathy noted Chest Chest: normal inspection of the chest Resp Effort & Inspection: normal respiratory effort and not able to speak in complete sentences (speaks in 3-4 word sentences) Auscultation: diminished lung sounds bilaterally throughout Cardio Rate: regular rate Rhythm: regular rhythm GI Inspection: normal to inspection Palpation: soft, not firm, no guarding, no hepatosplenomegaly, no masses and nontender Auscultation: normal bowel sounds Skin General skin exam: no rashes or lesions noted Neuro General: alert and awake Cognition: normal cognition Speech: speech normal Gait: normal gait Motor: muscle tone normal throughout Sensory Exam: no sensory deficits noted Extrem General: normal to inspection, full ROM and no edema Psych Appearance: grossly normal Mental Status: mental status grossly normal Speech and Movement: speech and movement normal Affect: normal affect Thought Process: normal Course Vital Signs Temperature 97.7 F 04/17/19 12:24 Pulse 95 H 04/17/19 12:24 Respiratory Rate 20 04/17/19 12:24 Blood Pressure 119/93 H 04/17/19 12:24 Pulse Oximetry 96 04/17/19 12:24 Temperature 97.7 F 04/17/19 12:24 Temperature Source Temporal Artery Scan 04/17/19 12:24 Pulse 95 H 04/17/19 12:24 Respiratory Rate 16 04/17/19 12:29 Respiratory Effort Non-Labored 04/17/19 12:29 Respiratory Depth Normal 04/17/19 12:29 Respiratory Pattern Normal 04/17/19 12:29 Blood Pressure 119/93 H 04/17/19 12:24 Pulse Oximetry 96 04/17/19 12:24 Oxygen Delivery Method Room Air 04/17/19 12:24 Oxygen Flow Rate 0 04/17/19 12:24 Pain Level 8 04/17/19 12:24
[2019-04-17 13:15] LABS: Abs Immature Grans 6.56 k/cumm (0.0-0.09); HCT 34.3 % (36.0-46.0); HGB 11.2 g/dL (12.0-15.5); Mean Corp. HGB Concentration 32.7 g/dL (32.0-36.0); Mean Corpuscular Hemoglobin 30.9 pg (27.0-33.0); Mean Corpuscular Volume 94.8 fL (80-95); Mean Platelet Volume 10.7 fL (8.0-11.0); RBC 3.62 m/cumm (4.00-5.20)
[2019-04-17 13:25] LABS: White Blood Cell Count 37.19 k/cumm (4.4-10.8)
[2019-04-17] MEDS: Albuterol/Ipratropium 3 ML UPD VIAL UPD (13:27)
[2019-04-17] MEDS: Magic Mouthwash 119 ML BTL 10 ML PO (13:28)
[2019-04-17 13:32] LABS: ALT 20 U/L (12-78); AST 15 U/L (15-37); Albumin 2.9 g/dL (3.4-5.0); Alkaline Phosphatase 118 U/L (46-116); Anion Gap 4.9 mmol/L (3-11); BUN 12 mg/dL (7-18); Bilirubin, Total 0.6 mg/dL (0.2-1.0); CO2 31.1 mmol/L (21.0-32.0); CREATININE 0.52 mg/dL (0.55-1.02); Calcium 8.8 mg/dL (8.5-10.1); Chloride 98 mmol/L (98-107); Glucose 99 mg/dL (70-100); Magnesium 1.3 mg/dL (1.8-2.4); Potassium 3.5 mmol/L (3.5-5.1); Sodium 134 mmol/L (136-145); Total Protein 6.2 g/dL (6.4-8.2); Troponin I < 0.02 ng/mL (0.00-0.06)
[2019-04-17 13:34] LABS: Bilirubin Negative (Negative); Blood Trace-intact (Negative); Clarity Clear; Glucose Negative (Negative); Ketones Negative (Negative); Leukocyte Esterase Negative (Negative); Nitrite Negative (Negative); Specific Gravity <= 1.005 (1.005-1.025); Urobilinogen 0.2 EU/dL (Up TO 0.2)
[2019-04-17 13:50] LABS: WBC 0-2 HPF (0-5)
[2019-04-17 13:51] LABS: Bacteria Negative HPF (Negative); C & S Indicated? No; Casts Negative LPF (Negative); Crystals Negative HPF (Negative); Epithelial Cells Rare HPF (Negative); Mucus Negative (Negative); RBC 0-2 (0-2)
[2019-04-17 14:13] LABS: Absolute Lymphocyte Count 1.12 k/cumm (1.2-3.4); Absolute Monocyte Count 0.37 k/cumm (0.11-0.7); Absolute Neutrophil Count 34.21 k/cumm (1.2-6.7); Platelet Count 154 x1000/uL (130-400); Promyelocytes % 0 %
[2019-04-17 14:14] LABS: Anisocytosis 1+
[2019-04-17 14:15] LABS: Diff Comment Manual Differential
--- NOTE | 2019-04-17 14:25 | DI.CT_ITS ---
SYMPTOMS/DIAGNOSIS: SHORTNESS OF BREATH, RECENT CHEMO, ? PE CT SCAN OF THE CHEST: CT scan of the chest was performed according to the pulmonary embolus protocol. There are nodular densities seen in the right lobe of the thyroid gland. Nonemergent thyroid ultrasound may be considered for further evaluation. There is no evidence of a pulmonary embolus. The thoracic aorta is of normal caliber. No aneurysm or dissection is seen. The heart size is within normal limits. No evidence of a pericardial effusion is seen. No evidence of right ventricular dysfunction is present. No significant thoracic adenopathy, pleural effusion or pneumothorax is identified. Mild emphysematous changes are seen in the lungs. No focal consolidating infiltrates are present. There is mild atelectasis in the dependent portions of the lungs. No acute osseous abnormalities identified. IMPRESSION: No evidence of a pulmonary embolus, thoracic aortic dissection or aneurysm. The findings were discussed with the Emergency Department on the date of the examination.
[2019-04-17] MEDS: MAGNESIUM SULFATE 1 GM/100 ML BAG IVPB (14:26)
[2019-04-17] MEDS: Normal Saline 250 ML IV (14:26)
[2019-04-17] MEDS: Omnipaque 350 MG/ML 100 ML BTL 61 ML IJ (14:26)
[2019-04-17] MEDS: Normal Saline Flush 10 ML SYR IVP (14:27)
[2019-04-17] MEDS: Heparin 500 UNITS/5 ML SYRINGE (17:54)
[2019-04-17] MEDS: Albuterol HFA 8 GM 60 PUFF INH IH (17:54)
== END 2019-04-17 16:14 | disposition home or self-care (01) ==
PROVIDERS: Emergency Provider Physician Assistant; PCP Family Medicine
DX: B37.0 Candidal stomatitis (principal); R06.00 Dyspnea, unspecified; J44.9 Chronic obstructive pulmonary disease, unspecified; C56.9 Malignant neoplasm of unspecified ovary; C78.00 Secondary malignant neoplasm of unspecified lung; Z92.21 Personal history of antineoplastic chemotherapy
CPT/HCPCS: 36410; 36415; 71275; 80053; 81025; 87040; 93005; 96361; 96365; 99285; 81003; 81015; 83605; 83735; 84484; 85025; 93010; J3475; J3490; J7620

== ENCOUNTER 2019-04-21 01:57 | Outpatient (CLI) | payer MEDICARE, SELFPAY ==
[2019-04-21 14:06] LABS: HCT 31.7 % (36.0-46.0); HGB 10.5 g/dL (12.0-15.5); Mean Corp. HGB Concentration 33.1 g/dL (32.0-36.0); Mean Corpuscular Hemoglobin 31.2 pg (27.0-33.0); Mean Corpuscular Volume 94.1 fL (80-95); Mean Platelet Volume 10.8 fL (8.0-11.0); Platelet Count 137 x1000/uL (130-400); RBC 3.37 m/cumm (4.00-5.20); White Blood Cell Count 9.81 k/cumm (4.4-10.8)
[2019-04-21 14:40] LABS: Absolute Lymphocyte Count 1.67 k/cumm (1.2-3.4); Absolute Monocyte Count 1.67 k/cumm (0.11-0.7); Absolute Neutrophil Count 6.38 k/cumm (1.2-6.7); Atypical Lymphocytes % 1; Diff Comment Manual Differential; Polychromasia Present
[2019-04-21 15:30] LABS: ALT 40 U/L (12-78); AST 23 U/L (15-37); Albumin 3.2 g/dL (3.4-5.0); Alkaline Phosphatase 176 U/L (46-116); Anion Gap 10.1 mmol/L (3-11); BUN 10 mg/dL (7-18); Bilirubin, Total 0.2 mg/dL (0.2-1.0); CO2 27.9 mmol/L (21.0-32.0); Calcium 9.1 mg/dL (8.5-10.1); Chloride 98 mmol/L (98-107); Glucose 110 mg/dL (70-100); Potassium 3.6 mmol/L (3.5-5.1); Sodium 136 mmol/L (136-145); Total Protein 6.9 g/dL (6.4-8.2)
== END 2019-04-21 02:17 ==
PROVIDERS: PCP Family Medicine; Visit Provider Obstetrics & Gynecology Gynecologic Oncology
DX: C56.9 Malignant neoplasm of unspecified ovary (principal)
CPT/HCPCS: 80053; 82565; 85025

== ENCOUNTER 2019-04-30 12:41 | Outpatient (CLI) | payer MEDICARE, SELFPAY ==
[2019-04-30 13:09] LABS: Abs Immature Grans 0.02 k/cumm (0.0-0.09); Absolute Basophil Count 0.02 k/cumm (0.0-0.2); Absolute Eosinophil Count 0.01 k/cumm (0.0-0.7); Absolute Lymphocyte Count 1.59 k/cumm (1.2-3.4); Absolute Monocyte Count 0.46 k/cumm (0.11-0.7); Absolute Neutrophil Count 5.32 k/cumm (1.2-6.7); Basophils % 0.3; Eosinophils % 0.1; HCT 34.5 % (36.0-46.0); HGB 10.8 g/dL (12.0-15.5); Immature Grans % 0.3; Lymphocytes % 21.4; Mean Corp. HGB Concentration 31.3 g/dL (32.0-36.0); Mean Corpuscular Volume 95.8 fL (80-95); Mean Platelet Volume 9.2 fL (8.0-11.0); Monocytes % 6.2; Neutrophils % 71.7; Platelet Count 394 x1000/uL (130-400); RBC Distribution Width 15.3 % (11.7-14.6); White Blood Cell Count 7.42 k/cumm (4.4-10.8)
[2019-04-30 14:08] LABS: ALT 22 U/L (12-78); AST 18 U/L (15-37); Albumin 3.3 g/dL (3.4-5.0); Alkaline Phosphatase 125 U/L (46-116); Anion Gap 8.8 mmol/L (3-11); BUN 7 mg/dL (7-18); Bilirubin, Total 0.1 mg/dL (0.2-1.0); CO2 26.2 mmol/L (21.0-32.0); CREATININE 0.55 mg/dL (0.55-1.02); Chloride 104 mmol/L (98-107); Glucose 94 mg/dL (70-100); Potassium 4.4 mmol/L (3.5-5.1); Sodium 139 mmol/L (136-145); Total Protein 6.9 g/dL (6.4-8.2)
[2019-05-01 10:06] LABS: CA 125 15 U/mL (0-30)
== END 2019-04-30 13:01 ==
PROVIDERS: PCP Family Medicine; Visit Provider Obstetrics & Gynecology Gynecologic Oncology
DX: C56.9 Malignant neoplasm of unspecified ovary (principal)
CPT/HCPCS: 36415; 80053; 86304; 85025

== ENCOUNTER 2019-05-14 01:36 | Outpatient (CLI) | payer MEDICARE, SELFPAY ==
[2019-05-14 12:26] LABS: ALT 25 U/L (12-78); AST 13 U/L (15-37); Albumin 3.3 g/dL (3.4-5.0); Alkaline Phosphatase 141 U/L (46-116); Anion Gap 8.1 mmol/L (3-11); BUN 4 mg/dL (7-18); Bilirubin, Total 0.1 mg/dL (0.2-1.0); CO2 26.9 mmol/L (21.0-32.0); CREATININE 0.57 mg/dL (0.55-1.02); Calcium 8.6 mg/dL (8.5-10.1); Chloride 105 mmol/L (98-107); Glucose 92 mg/dL (70-100); Potassium 3.8 mmol/L (3.5-5.1); Sodium 140 mmol/L (136-145); Total Protein 6.7 g/dL (6.4-8.2)
== END 2019-05-14 01:56 ==
PROVIDERS: PCP Family Medicine; Visit Provider Obstetrics & Gynecology Gynecologic Oncology
DX: C56.9 Malignant neoplasm of unspecified ovary (principal)
CPT/HCPCS: 36415; 80053

== ENCOUNTER 2019-06-02 02:41 | Outpatient (CLI) | payer MEDICARE, SELFPAY ==
[2019-06-02 10:31] LABS: Abs Immature Grans 0.02 k/cumm (0.0-0.09); Absolute Basophil Count 0.03 k/cumm (0.0-0.2); Absolute Eosinophil Count 0.06 k/cumm (0.0-0.7); Absolute Lymphocyte Count 1.48 k/cumm (1.2-3.4); Absolute Monocyte Count 0.57 k/cumm (0.11-0.7); Absolute Neutrophil Count 4.16 k/cumm (1.2-6.7); Basophils % 0.5; Eosinophils % 0.9; HCT 34.2 % (36.0-46.0); HGB 11.3 g/dL (12.0-15.5); Immature Grans % 0.3; Lymphocytes % 23.4; Mean Corpuscular Hemoglobin 32.5 pg (27.0-33.0); Mean Corpuscular Volume 98.3 fL (80-95); Mean Platelet Volume 9.2 fL (8.0-11.0); Neutrophils % 65.9; Platelet Count 303 x1000/uL (130-400); RBC 3.48 m/cumm (4.00-5.20); RBC Distribution Width 14.4 % (11.7-14.6); White Blood Cell Count 6.32 k/cumm (4.4-10.8)
[2019-06-02 10:46] LABS: ALT 21 U/L (12-78); AST 17 U/L (15-37); Albumin 3.5 g/dL (3.4-5.0); Alkaline Phosphatase 89 U/L (46-116); Anion Gap 9.2 mmol/L (3-11); BUN 9 mg/dL (7-18); Bilirubin, Total 0.2 mg/dL (0.2-1.0); CO2 28.8 mmol/L (21.0-32.0); CREATININE 0.54 mg/dL (0.55-1.02); Calcium 8.8 mg/dL (8.5-10.1); Chloride 102 mmol/L (98-107); Glucose 103 mg/dL (70-100); Sodium 140 mmol/L (136-145); Total Protein 7.1 g/dL (6.4-8.2)
== END 2019-06-02 03:01 ==
LOC: LOS 02:41 → LBO 10:12
PROVIDERS: PCP Family Medicine; Visit Provider Obstetrics & Gynecology Gynecologic Oncology
DX: C56.9 Malignant neoplasm of unspecified ovary (principal)
CPT/HCPCS: 36415; 80053; 85025

== ENCOUNTER 2019-06-09 06:39 | Outpatient (RCR) | payer MEDICARE, SELFPAY ==
[2019-06-09] MEDS: Normal Saline Flush 10 ML SYR 30 ML IVP (10:05)
[2019-06-09 10:29] LABS: Absolute Basophil Count 0.02 k/cumm (0.0-0.2); Absolute Eosinophil Count 0.01 k/cumm (0.0-0.7); Absolute Lymphocyte Count 1.04 k/cumm (1.2-3.4); Absolute Monocyte Count 0.34 k/cumm (0.11-0.7); Absolute Neutrophil Count 1.49 k/cumm (1.2-6.7); Basophils % 0.7; Eosinophils % 0.3; HCT 33.6 % (36.0-46.0); HGB 11.1 g/dL (12.0-15.5); Lymphocytes % 35.9; Mean Corpuscular Hemoglobin 32.2 pg (27.0-33.0); Mean Corpuscular Volume 97.4 fL (80-95); Mean Platelet Volume 9.1 fL (8.0-11.0); Monocytes % 11.7; Neutrophils % 51.4; Platelet Count 209 x1000/uL (130-400); RBC 3.45 m/cumm (4.00-5.20); RBC Distribution Width 12.9 % (11.7-14.6)
[2019-06-09 10:43] LABS: Diff Comment Diff Reviewed; RBC Morphology Normal
[2019-06-09 10:45] LABS: ALT 23 U/L (12-78); AST 18 U/L (15-37); Albumin 3.2 g/dL (3.4-5.0); Alkaline Phosphatase 90 U/L (46-116); Anion Gap 8.5 mmol/L (3-11); BUN 7 mg/dL (7-18); Bilirubin, Total 0.2 mg/dL (0.2-1.0); CO2 26.5 mmol/L (21.0-32.0); CREATININE 0.45 mg/dL (0.55-1.02); Calcium 9.1 mg/dL (8.5-10.1); Chloride 105 mmol/L (98-107); Glucose 104 mg/dL (70-100); Potassium 4.2 mmol/L (3.5-5.1); Sodium 140 mmol/L (136-145); Total Protein 6.9 g/dL (6.4-8.2)
== END 2019-06-17 23:59 | disposition home or self-care (01) ==
LOC: INF 06:39
PROVIDERS: PCP Family Medicine; Visit Provider Internal Medicine
DX: C56.9 Malignant neoplasm of unspecified ovary (principal); Z45.2 Encounter for adjustment and management of vascular access device
CPT/HCPCS: 36591; 80053; 85025

== ENCOUNTER 2019-06-16 01:26 | Outpatient (RCR) | payer MEDICARE, SELFPAY ==
[2019-06-16] MEDS: Normal Saline Flush 10 ML SYR IVP (08:45)
[2019-06-16 09:07] LABS: Absolute Basophil Count 0.01 k/cumm (0.0-0.2); Absolute Eosinophil Count 0.01 k/cumm (0.0-0.7); Absolute Lymphocyte Count 1.12 k/cumm (1.2-3.4); Absolute Monocyte Count 0.16 k/cumm (0.11-0.7); Absolute Neutrophil Count 1.43 k/cumm (1.2-6.7); Basophils % 0.4; Eosinophils % 0.4; HCT 32.6 % (36.0-46.0); HGB 10.9 g/dL (12.0-15.5); Mean Corp. HGB Concentration 33.4 g/dL (32.0-36.0); Mean Corpuscular Hemoglobin 32.3 pg (27.0-33.0); Mean Corpuscular Volume 96.7 fL (80-95); Mean Platelet Volume 9.3 fL (8.0-11.0); Monocytes % 5.9; Neutrophils % 52.3; RBC 3.37 m/cumm (4.00-5.20); RBC Distribution Width 12.4 % (11.7-14.6); White Blood Cell Count 2.73 k/cumm (4.4-10.8)
[2019-06-16 09:23] LABS: ALT 21 U/L (12-78); AST 16 U/L (15-37); Albumin 3.3 g/dL (3.4-5.0); Alkaline Phosphatase 79 U/L (46-116); Anion Gap 9.8 mmol/L (3-11); BUN 9 mg/dL (7-18); Bilirubin, Total 0.2 mg/dL (0.2-1.0); CO2 26.2 mmol/L (21.0-32.0); CREATININE 0.63 mg/dL (0.55-1.02); Calcium 8.9 mg/dL (8.5-10.1); Chloride 104 mmol/L (98-107); Glucose 105 mg/dL (70-100); Potassium 3.9 mmol/L (3.5-5.1); Sodium 140 mmol/L (136-145); Total Protein 7.2 g/dL (6.4-8.2)
[2019-06-16 09:32] LABS: Platelet Count 103 x1000/uL (130-400)
[2019-06-16 09:33] LABS: Diff Comment Diff Reviewed; RBC Morphology Normal
== END 2019-06-17 23:59 | disposition home or self-care (01) ==
LOC: INF 01:26
PROVIDERS: PCP Family Medicine; Visit Provider Internal Medicine
DX: C56.9 Malignant neoplasm of unspecified ovary (principal); Z45.2 Encounter for adjustment and management of vascular access device
CPT/HCPCS: 36591; 80053; 85025

== ENCOUNTER 2019-07-03 00:41 | Outpatient (CLI) | payer MEDICARE, SELFPAY ==
[2019-07-03] MEDS: Normal Saline Flush 10 ML SYR IVP (11:12)
[2019-07-03] MEDS: Gadoterate meglumine 20 ML VIAL 11 ML IVP (11:13)
--- NOTE | 2019-07-03 11:20 | DI.MRI_ITS ---
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 The patient has reported had resection of ovarian carcinoma. There is decreased signal in left hemipelvis on all pulse sequences, please correlate regarding prior radiotherapy. No focal enhancing lesion is identified in the bony pelvis on post contrast examination. No fracture identified. No gross adenopathy seen in the soft tissues. The previously noted pelvic mass seen on outside imaging is no longer present. CONCLUSION: No focal bony lesion. Generalized low signal in left hemipelvis, please correlate regarding any history of prior radiation therapy.
== END 2019-07-03 01:01 ==
PROVIDERS: PCP Family Medicine; Visit Provider Registered Nurse Oncology
DX: C56.9 Malignant neoplasm of unspecified ovary (principal); M25.551 Pain in right hip; Z92.21 Personal history of antineoplastic chemotherapy; Z12.89 Encounter for screening for malignant neoplasm of other sites
CPT/HCPCS: 72197; 96523

== ENCOUNTER 2019-07-14 01:18 | Outpatient (RCR) | payer MEDICARE, SELFPAY ==
[2019-06-30] MEDS: Normal Saline Flush 10 ML SYR IVP (09:05)
[2019-06-30 09:25] LABS: Abs Immature Grans 0.28 k/cumm (0.0-0.09); Absolute Eosinophil Count 0.11 k/cumm (0.0-0.7); Absolute Lymphocyte Count 1.93 k/cumm (1.2-3.4); Absolute Monocyte Count 1.22 k/cumm (0.11-0.7); Absolute Neutrophil Count 10.28 k/cumm (1.2-6.7); Basophils % 0.4; Eosinophils % 0.8; HCT 32.6 % (36.0-46.0); HGB 10.6 g/dL (12.0-15.5); Lymphocytes % 13.9; Mean Corp. HGB Concentration 32.5 g/dL (32.0-36.0); Mean Corpuscular Hemoglobin 33.2 pg (27.0-33.0); Mean Corpuscular Volume 102.2 fL (80-95); Mean Platelet Volume 10.8 fL (8.0-11.0); Monocytes % 8.8; Neutrophils % 74.1; Platelet Count 433 x1000/uL (130-400); RBC 3.19 m/cumm (4.00-5.20); RBC Distribution Width 15.3 % (11.7-14.6); White Blood Cell Count 13.87 k/cumm (4.4-10.8)
[2019-06-30 09:30] LABS: Absolute Basophil Count 0.06 k/cumm (0.0-0.2)
[2019-06-30 09:40] LABS: ALT 29 U/L (12-78); AST 20 U/L (15-37); Alkaline Phosphatase 115 U/L (46-116); Anion Gap 9.3 mmol/L (3-11); BUN 3 mg/dL (7-18); Bilirubin, Total 0.2 mg/dL (0.2-1.0); CO2 26.7 mmol/L (21.0-32.0); CREATININE 0.59 mg/dL (0.55-1.02); Calcium 8.2 mg/dL (8.5-10.1); Chloride 106 mmol/L (98-107); Glucose 98 mg/dL (70-100); Potassium 3.4 mmol/L (3.5-5.1); Sodium 142 mmol/L (136-145); Total Protein 6.6 g/dL (6.4-8.2)
[2019-06-30 09:53] LABS: Anisocytosis 1+; Diff Comment Agrees w/ Instrument
[2019-06-30 09:54] LABS: Poikilocytes 1+
[2019-07-03] MEDS: Normal Saline Flush 10 ML SYR IVP (09:10)
[2019-07-03] MEDS: Heparin 500 UNITS/5 ML SYRINGE IV (09:11)
[2019-07-07] MEDS: Normal Saline Flush 10 ML SYR IVP (08:30)
[2019-07-07] MEDS: Heparin 500 UNITS/5 ML SYRINGE IV (08:30)
[2019-07-07 08:56] LABS: Abs Immature Grans 0.01 k/cumm (0.0-0.09); Absolute Basophil Count 0.04 k/cumm (0.0-0.2); Absolute Eosinophil Count 0.02 k/cumm (0.0-0.7); Absolute Lymphocyte Count 1.61 k/cumm (1.2-3.4); Absolute Monocyte Count 0.47 k/cumm (0.11-0.7); Absolute Neutrophil Count 2.64 k/cumm (1.2-6.7); Basophils % 0.8; Eosinophils % 0.4; HCT 33.7 % (36.0-46.0); HGB 11.2 g/dL (12.0-15.5); Immature Grans % 0.2; Lymphocytes % 33.6; Mean Corp. HGB Concentration 33.2 g/dL (32.0-36.0); Mean Corpuscular Hemoglobin 33.3 pg (27.0-33.0); Mean Corpuscular Volume 100.3 fL (80-95); Mean Platelet Volume 9.7 fL (8.0-11.0); Monocytes % 9.8; Neutrophils % 55.2; Platelet Count 351 x1000/uL (130-400); RBC 3.36 m/cumm (4.00-5.20); RBC Distribution Width 14.3 % (11.7-14.6); White Blood Cell Count 4.79 k/cumm (4.4-10.8)
[2019-07-07 09:17] LABS: ALT 40 U/L (12-78); AST 24 U/L (15-37); Albumin 3.4 g/dL (3.4-5.0); Alkaline Phosphatase 88 U/L (46-116); Anion Gap 10.4 mmol/L (3-11); BUN 9 mg/dL (7-18); Bilirubin, Total 0.3 mg/dL (0.2-1.0); CO2 26.6 mmol/L (21.0-32.0); CREATININE 0.59 mg/dL (0.55-1.02); Calcium 9.3 mg/dL (8.5-10.1); Chloride 106 mmol/L (98-107); Glucose 101 mg/dL (70-100); Potassium 4.1 mmol/L (3.5-5.1); Sodium 143 mmol/L (136-145); Total Protein 7.4 g/dL (6.4-8.2)
[2019-07-14 08:57] LABS: Absolute Basophil Count 0.01 k/cumm (0.0-0.2); Absolute Eosinophil Count 0.01 k/cumm (0.0-0.7); Absolute Lymphocyte Count 1.23 k/cumm (1.2-3.4); Absolute Neutrophil Count 1.13 k/cumm (1.2-6.7); Basophils % 0.4; Eosinophils % 0.4; HCT 28.2 % (36.0-46.0); HGB 9.5 g/dL (12.0-15.5); Lymphocytes % 47.7; Mean Corp. HGB Concentration 33.7 g/dL (32.0-36.0); Mean Corpuscular Hemoglobin 33.8 pg (27.0-33.0); Mean Corpuscular Volume 100.4 fL (80-95); Mean Platelet Volume 9.1 fL (8.0-11.0); Monocytes % 7.8; Neutrophils % 43.7; Platelet Count 120 x1000/uL (130-400); RBC 2.81 m/cumm (4.00-5.20); RBC Distribution Width 13.5 % (11.7-14.6); White Blood Cell Count 2.58 k/cumm (4.4-10.8)
[2019-07-14 09:11] LABS: Diff Comment Agrees w/ Instrument; Polychromasia Present
[2019-07-14 09:20] LABS: ALT 33 U/L (14-59); AST 25 U/L (15-37); Albumin 3.1 g/dL (3.4-5.0); Alkaline Phosphatase 82 U/L (46-116); BUN 8 mg/dL (7-18); Bilirubin, Total 0.2 mg/dL (0.2-1.0); CREATININE 0.62 mg/dL (0.55-1.02); Calcium 8.6 mg/dL (8.5-10.1); Chloride 105 mmol/L (98-107); Glucose 107 mg/dL (70-100); Potassium 3.6 mmol/L (3.5-5.1); Sodium 141 mmol/L (136-145); Total Protein 6.7 g/dL (6.4-8.2)
[2019-07-14] MEDS: Normal Saline Flush 10 ML SYR IVP (09:21)
== END 2019-07-18 23:59 | disposition home or self-care (01) ==
LOC: INF 01:18
PROVIDERS: PCP Family Medicine; Visit Provider Internal Medicine
DX: D27.9 Benign neoplasm of unspecified ovary (principal); Z45.2 Encounter for adjustment and management of vascular access device
CPT/HCPCS: 36591; 80053; 96523; 85025

== ENCOUNTER 2019-08-11 01:50 | Outpatient (RCR) | payer MEDICARE, SELFPAY ==
[2019-07-28] MEDS: Normal Saline Flush 10 ML SYR IVP (08:47)
[2019-07-28 09:05] LABS: Abs Immature Grans 0.11 k/cumm (0.0-0.09); Absolute Basophil Count 0.06 k/cumm (0.0-0.2); Absolute Eosinophil Count 0.21 k/cumm (0.0-0.7); Absolute Monocyte Count 1.24 k/cumm (0.11-0.7); Basophils % 0.4; Eosinophils % 1.3; HCT 31.2 % (36.0-46.0); Immature Grans % 0.7; Lymphocytes % 8.9; Mean Corp. HGB Concentration 32.1 g/dL (32.0-36.0); Mean Corpuscular Hemoglobin 34.2 pg (27.0-33.0); Mean Corpuscular Volume 106.8 fL (80-95); Mean Platelet Volume 10.7 fL (8.0-11.0); Monocytes % 7.8; Neutrophils % 80.9; RBC 2.92 m/cumm (4.00-5.20); RBC Distribution Width 18.1 % (11.7-14.6); White Blood Cell Count 15.87 k/cumm (4.4-10.8)
[2019-07-28 09:09] LABS: Absolute Lymphocyte Count 1.41 k/cumm (1.2-3.4); Absolute Neutrophil Count 12.84 k/cumm (1.2-6.7)
[2019-07-28 09:18] LABS: ALT 25 U/L (14-59); AST 23 U/L (15-37); Albumin 3.3 g/dL (3.4-5.0); Alkaline Phosphatase 133 U/L (46-116); Anion Gap 9.8 mmol/L (3-11); BUN 13 mg/dL (7-18); Bilirubin, Total 0.2 mg/dL (0.2-1.0); CO2 25.2 mmol/L (21.0-32.0); CREATININE 0.82 mg/dL (0.55-1.02); Calcium 8.9 mg/dL (8.5-10.1); Chloride 107 mmol/L (98-107); Glucose 133 mg/dL (70-100); Potassium 4.2 mmol/L (3.5-5.1); Sodium 142 mmol/L (136-145); Total Protein 7.2 g/dL (6.4-8.2)
[2019-07-28 09:32] LABS: Anisocytosis 2+; Diff Comment Agrees w/ Instrument; Macrocytosis 2+; Platelet Count 545 x1000/uL (130-400); Polychromasia Present
[2019-07-28 09:33] LABS: Poikilocytes 2+
[2019-07-29 11:02] LABS: CA 125 9 U/mL (0-30)
[2019-08-04] MEDS: Normal Saline Flush 10 ML SYR IVP (12:02)
[2019-08-04 12:08] LABS: Abs Immature Grans 0.01 k/cumm (0.0-0.09); Absolute Basophil Count 0.06 k/cumm (0.0-0.2); Absolute Eosinophil Count 0.03 k/cumm (0.0-0.7); Absolute Lymphocyte Count 1.17 k/cumm (1.2-3.4); Absolute Monocyte Count 0.69 k/cumm (0.11-0.7); Absolute Neutrophil Count 3.46 k/cumm (1.2-6.7); Basophils % 1.1; Eosinophils % 0.6; HCT 28.4 % (36.0-46.0); Immature Grans % 0.2; Lymphocytes % 21.6; Mean Corp. HGB Concentration 31.7 g/dL (32.0-36.0); Mean Corpuscular Hemoglobin 33.5 pg (27.0-33.0); Mean Corpuscular Volume 105.6 fL (80-95); Mean Platelet Volume 9.5 fL (8.0-11.0); Monocytes % 12.7; Neutrophils % 63.8; Platelet Count 356 x1000/uL (130-400); RBC 2.69 m/cumm (4.00-5.20); RBC Distribution Width 15.7 % (11.7-14.6); White Blood Cell Count 5.42 k/cumm (4.4-10.8)
[2019-08-04 12:32] LABS: Diff Comment RBC Morph Reviewed; Hypochromasia 2+; Macrocytosis 2+; Polychromasia Present
[2019-08-04 12:33] LABS: Poikilocytes 2+
[2019-08-04 12:37] LABS: ALT 27 U/L (14-59); AST 24 U/L (15-37); Albumin 3.1 g/dL (3.4-5.0); Alkaline Phosphatase 89 U/L (46-116); Anion Gap 8.4 mmol/L (3-11); BUN 9 mg/dL (7-18); Bilirubin, Total 0.2 mg/dL (0.2-1.0); CO2 25.6 mmol/L (21.0-32.0); CREATININE 0.69 mg/dL (0.55-1.02); Calcium 8.6 mg/dL (8.5-10.1); Chloride 105 mmol/L (98-107); Glucose 113 mg/dL (70-100); Potassium 3.9 mmol/L (3.5-5.1); Sodium 139 mmol/L (136-145); Total Protein 6.7 g/dL (6.4-8.2)
[2019-08-11 08:37] LABS: HCT 25.9 % (36.0-46.0); HGB 8.6 g/dL (12.0-15.5); Mean Corp. HGB Concentration 33.2 g/dL (32.0-36.0); Mean Corpuscular Hemoglobin 34.8 pg (27.0-33.0); Mean Corpuscular Volume 104.9 fL (80-95); Mean Platelet Volume 9.1 fL (8.0-11.0); Platelet Count 100 x1000/uL (130-400); RBC 2.47 m/cumm (4.00-5.20); RBC Distribution Width 16.4 % (11.7-14.6)
[2019-08-11] MEDS: Normal Saline Flush 10 ML SYR IVP (08:37)
[2019-08-11 08:50] LABS: ALT 23 U/L (14-59); AST 24 U/L (15-37); Alkaline Phosphatase 76 U/L (46-116); Anion Gap 6.2 mmol/L (3-11); BUN 6 mg/dL (7-18); Bilirubin, Total 0.3 mg/dL (0.2-1.0); CO2 26.8 mmol/L (21.0-32.0); CREATININE 0.73 mg/dL (0.55-1.02); Calcium 8.6 mg/dL (8.5-10.1); Chloride 106 mmol/L (98-107); Glucose 151 mg/dL (70-100); Potassium 3.6 mmol/L (3.5-5.1); Sodium 139 mmol/L (136-145); Total Protein 6.6 g/dL (6.4-8.2)
[2019-08-11 09:39] LABS: Absolute Lymphocyte Count 0.56 k/cumm (1.2-3.4); Absolute Monocyte Count 0.13 k/cumm (0.11-0.7); Absolute Neutrophil Count 0.95 k/cumm (1.2-6.7); Atypical Lymphocytes % 1
[2019-08-11 09:40] LABS: Promyelocytes % 0 %
[2019-08-11 09:45] LABS: White Blood Cell Count 1.66 k/cumm (4.4-10.8)
[2019-08-11 10:03] LABS: Anisocytosis 3+; Macrocytosis 2+; Microcytosis 3+; Ovalocytes 2+
[2019-08-11 10:04] LABS: Poikilocytes 3+; Tear Drop Cells 2+
[2019-08-11 10:15] LABS: Diff Comment Manual Differential
== END 2019-08-17 23:59 | disposition home or self-care (01) ==
LOC: INF 01:50
PROVIDERS: PCP Family Medicine; Visit Provider Internal Medicine
DX: D27.9 Benign neoplasm of unspecified ovary (principal); Z45.2 Encounter for adjustment and management of vascular access device
CPT/HCPCS: 36591; 80053; 86304; 85025

== ENCOUNTER 2019-08-19 00:45 | Outpatient (CLI) | payer MEDICARE, SELFPAY ==
--- NOTE | 2019-08-19 08:15 | DI.NM_ITS ---
EXAM: NM BONE SCAN WHOLE BODY GRP CLINICAL HISTORY: OVARIAN CA,C56.9, ? RESPONSE TO THERAPY. TECHNIQUE: Injected Dose: 25 mCi Tc-99m MDP Delayed Images: 2-3 hours. COMPARISON: CT CHEST/ABD/PEL W from 08/19/2019 FINDINGS: Symmetric axial uptake. Bilateral renal excretion is identified. There is increased radiotracer uptak e present in the left sacrum and left iliac. There also appears to be increased radiotracer uptake i n the right iliac bone. There is also increased radiotracer uptake in the left pubic bone and ischiu m. IMPRESSION: 1. Findings of osseous metastatic disease involving the pelvis.
--- NOTE | 2019-08-19 10:09 | DI.CT_ITS ---
EXAM: CT CHEST/ABD/PEL W CLINICAL HISTORY: OVARIAN CA, C56.9, ? RESPONSE TO THERAPY. TECHNIQUE: Imaging Protocol: Axial computed tomography images with coronal and sagittal reformatted images were created and reviewed CONTRAST MATERIAL: Intravenous: Omnipaque 350 Contrast volume:100 mL contrast route:IV - Oral: Oral contrast was administered. COMPARISON: CHEST ABD PELVIS WITH CONTRAST from 12/18/2016 CT CHEST PE CTA from 04/17/2019 FINDINGS: CHEST: Tracheobronchial tree: Patent where visualized. Mediastinum and Mattie: There is again seen an enhancing mass in the right supraclavicular region. It appears to be contiguous with the right lobe of the thyroid gland. This was present on the CT scan f rom 04/17/2019. Pulmonary parenchyma: No consolidation or dominant measurable mass. Mild emphysematous changes are p resent in the lungs. There is an ill-defined density in the right upper lobe. This was present on t he prior examination and is unchanged. There is a density associated with the right minor fissure wh ich is stable. No pulmonary nodules are appreciated. Pleura: No effusion or pneumothorax. Lymph nodes: There has been interval development of mediastinal adenopathy. The largest measures 1.3 cm in its short axis. Aorta: Thoracic portion non-dilated. Heart: No cardiomegaly. No pericardial effusion. Coronary artery calcifications. Other: The tip of the indwelling central venous catheter is seen at the junction of the superior vena cava and right atrium. Bones: There appears to be a sclerotic area associated with the right 8th rib posteriorly. Given the findings in the pelvis this likely reflects a metastatic deposit. ABDOMEN: Liver: Normal density. No mass. The portal, superior mesenteric, and splenic veins are patent. Gallbladder and biliary tract: No radiodense calculus or dilation. Pancreas: Normal density, no abnormal calcifications or inflammatory process. Spleen: Normal. Kidneys: Normal size, contour and axis. No radiodense stones or obstructive uropathy. No masses seen. Adrenal glands: No masses seen. Aorta: Abdominal portion non-dilated. Atherosclerosis. Lymph nodes: Unremarkable. PELVIS: Bladder: Symmetric distention, no gross wall thickening. Bowel: There is persistent dilatation of a loop of bowel in the right lower quadrant near the bowel a nastomosis. It is unchanged compared to the prior examination. Oral contrast passes beyond this are a. No evidence of obstruction is seen. There is a small hiatal hernia. The bowel is otherwise unre markable. Peritoneal cavity: There is a small amount of pelvic ascites. Bones: There is now diffuse osteoblastic lesions throughout the spine and pelvis consistent with meta static disease. Reproductive organs: The patient is status post hysterectomy. IMPRESSION: 1. Interval development of diffuse osteoblastic metastatic disease. 2. Small amount of pelvic ascites. 3. Development of thoracic adenopathy. DATA REPOSITORY: All CT scans at this facility are submitted to the National Radiology Data Registry (NRDR) Dose Index Registry (DIR) with the [employer] (ACR). RADIATION OPTIMIZATION: All CT scans at this facility use at least one of these dose optimization te chniques: automated exposure control; mA and/or kV adjustment per patient size (includes targeted exa ms where dose is matched to clinical indication); or iterative reconstruction.
[2019-08-19] MEDS: Omnipaque 350 MG/ML 100 ML BTL IJ (10:11)
[2019-08-19] MEDS: Normal Saline Flush 10 ML SYR IVP (10:18)
[2019-08-19] MEDS: Breeza Beverage 473 ML BTL PO ×2 (10:18→10:20)
== END 2019-08-19 01:05 ==
PROVIDERS: PCP Family Medicine; Visit Provider Registered Nurse Oncology
DX: C56.9 Malignant neoplasm of unspecified ovary (principal); C78.00 Secondary malignant neoplasm of unspecified lung; C79.51 Secondary malignant neoplasm of bone; R59.0 Localized enlarged lymph nodes; R18.8 Other ascites; Z92.21 Personal history of antineoplastic chemotherapy; Z45.2 Encounter for adjustment and management of vascular access device
CPT/HCPCS: 74177; 78306; 96523; 71260; J3490

== ENCOUNTER 2019-08-19 01:42 | Outpatient (RCR) | payer MEDICARE, SELFPAY ==
[2019-08-19] MEDS: Heparin 500 UNITS/5 ML SYRINGE (08:10)
[2019-08-19] MEDS: Normal Saline Flush 10 ML SYR 30 ML IVP (08:10)
== END 2019-09-17 23:59 | disposition home or self-care (01) ==
LOC: INF 01:42
PROVIDERS: PCP Family Medicine; Visit Provider Internal Medicine
DX: Z45.2 Encounter for adjustment and management of vascular access device (principal)
CPT/HCPCS: 96523

== ENCOUNTER 2019-10-01 14:40 | Outpatient (RCR) | payer MEDICARE, SELFPAY ==
[2019-10-01] MEDS: Normal Saline Flush 10 ML SYR 30 ML IVP (14:55)
[2019-10-01 15:03] LABS: Abs Immature Grans 0.01 k/cumm (0.0-0.09); Absolute Basophil Count 0.04 k/cumm (0.0-0.2); Absolute Eosinophil Count 0.07 k/cumm (0.0-0.7); Absolute Lymphocyte Count 2.13 k/cumm (1.2-3.4); Absolute Neutrophil Count 3.34 k/cumm (1.2-6.7); Basophils % 0.6; Eosinophils % 1.1; HCT 36.1 % (36.0-46.0); HGB 11.4 g/dL (12.0-15.5); Immature Grans % 0.2; Lymphocytes % 33.9; Mean Corp. HGB Concentration 31.6 g/dL (32.0-36.0); Mean Corpuscular Hemoglobin 31.3 pg (27.0-33.0); Mean Corpuscular Volume 99.2 fL (80-95); Mean Platelet Volume 9.8 fL (8.0-11.0); Monocytes % 11.1; Neutrophils % 53.1; Platelet Count 267 x1000/uL (130-400); RBC 3.64 m/cumm (4.00-5.20); RBC Distribution Width 15.7 % (11.7-14.6); White Blood Cell Count 6.29 k/cumm (4.4-10.8)
[2019-10-01 15:19] LABS: ALT 30 U/L (14-59); AST 26 U/L (15-37); Albumin 3.2 g/dL (3.4-5.0); Alkaline Phosphatase 91 U/L (46-116); Anion Gap 7.9 mmol/L (3-11); BUN 12 mg/dL (7-18); Bilirubin, Total 0.2 mg/dL (0.2-1.0); CO2 28.1 mmol/L (21.0-32.0); CREATININE 0.84 mg/dL (0.55-1.02); Calcium 9.3 mg/dL (8.5-10.1); Chloride 104 mmol/L (98-107); Glucose 91 mg/dL (70-100); Sodium 140 mmol/L (136-145); Total Protein 7.5 g/dL (6.4-8.2)
== END 2019-10-17 23:59 | disposition home or self-care (01) ==
LOC: INF 14:40
PROVIDERS: PCP Family Medicine; Visit Provider Internal Medicine
DX: D27.9 Benign neoplasm of unspecified ovary (principal); Z45.2 Encounter for adjustment and management of vascular access device
CPT/HCPCS: 36591; 80053; 85025

== ENCOUNTER 2019-11-27 03:51 | Outpatient (RCR) | payer MEDICARE, SELFPAY ==
[2019-11-27] MEDS: Normal Saline Flush 10 ML SYR IVP (07:48)
[2019-11-27 08:31] LABS: Anion Gap 9.7 mmol/L (3-11); BUN 9 mg/dL (7-18); CO2 27.3 mmol/L (21.0-32.0); CREATININE 0.63 mg/dL (0.55-1.02); Calcium 9.4 mg/dL (8.5-10.1); Chloride 104 mmol/L (98-107); Glucose 93 mg/dL (74-106); Potassium 4.1 mmol/L (3.5-5.1); Sodium 141 mmol/L (136-145)
== END 2019-12-18 23:59 | disposition home or self-care (01) ==
LOC: INF 03:51
PROVIDERS: PCP Family Medicine; Visit Provider Obstetrics & Gynecology Gynecologic Oncology
DX: C56.9 Malignant neoplasm of unspecified ovary (principal); Z45.2 Encounter for adjustment and management of vascular access device
CPT/HCPCS: 36591; 80048

== ENCOUNTER → 2019-11-30 11:00 | Outpatient (BNVA) | payer MEDICARE, SELFPAY | PROVIDERS: PCP Family Medicine; Referring Provider Family Medicine; Visit Provider Surgery | DX: L02.211 Cutaneous abscess of abdominal wall (principal) | CPT/HCPCS: 10061; 99201; 99212 ==

== ENCOUNTER 2019-11-30 12:12 | Outpatient (REF) | payer MEDICARE, SELFPAY | END 2019-11-30 12:32 | LOC: LBN 12:12 | PROVIDERS: PCP Family Medicine; Visit Provider Surgery | DX: L02.211 Cutaneous abscess of abdominal wall (principal) | CPT/HCPCS: 87077; 87070; 87186; 87205 ==

== ENCOUNTER 2020-01-26 11:19 | Outpatient (CLI) | payer MEDICARE, SELFPAY ==
[2020-01-26 11:53] LABS: Bilirubin Small (Negative); Blood Negative (Negative); Clarity Clear (Clear); Glucose Negative (Negative); Ketones Negative (Negative); Leukocyte Esterase Negative (Negative); Nitrite Negative (Negative); Specific Gravity >= 1.030 (1.005-1.025)
[2020-01-26 12:01] LABS: Bacteria Rare HPF (Negative); C & S Indicated? No; Casts 0-2 Hyaline LPF (Negative); Crystals Negative HPF (Negative); Epithelial Cells Few HPF (Negative); Mucus Trace (Negative); RBC 0-2 HPF (0-2); WBC 0-2 HPF (0-5)
== END 2020-01-26 11:39 ==
PROVIDERS: PCP Family Medicine; Visit Provider Radiology Radiation Oncology
DX: R35.0 Frequency of micturition (principal)
CPT/HCPCS: 36415; 81003; 81015

== ENCOUNTER 2020-03-25 01:23 | Emergency (ER) | payer MEDICARE, SELFPAY ==
[2020-03-25 01:27] VITALS: BP 145/76; PULSE 86; RESP 16; TEMP 35.9; O2SAT 94
--- NOTE | 2020-03-25 01:39 | ED.GENADUL_ITS ---
Discharge Plan Disposition Patient Disposition: HOME Condition: Stable Discharge Details Chief Complaint: Abd Prob Clinical Impression: Abdominal pain, Palliative care patient, Intussusception Primary Care Provider: Andreea Gould ED Provider: Andi Joshi Home Meds and New Rx's Prescriptions: New ondansetron HCl [Zofran] 4 mg tablet 4 mg PO Q8H Qty: 12 RF: 0 No Action hydromorphone (PF)-0.9 % NaCl 0.2 mg/mL solution 0.2 mg IV Q10M PRNRF: 0 cholecalciferol (vitamin D3) 2,000 unit capsule 2,000 unit PO DAILY RF: 0 calcium carbonate 500 mg calcium (1,250 mg) tablet 500 mg PO DAILY RF: 0 acetaminophen 500 mg tablet 1,000 mg PO Q8H PRNRF: 0 prochlorperazine maleate 10 mg tablet 10 mg PO Q6H PRNRF: 0 sennosides-docusate sodium [Senna with Docusate Sodium] 8.6-50 mg tablet 1 tab PO BID PRNRF: 0 magnesium oxide 400 mg magnesium capsule 400 mg PO DAILY RF: 0 polyethylene glycol 3350 17 gram/dose powder 17 gm PO DAILY RF: 0 albuterol sulfate [Ventolin HFA] 90 mcg/actuation HFA aerosol inhaler 2 puff IH Q6H PRN (Reason: shortness of breath) Qty: 18 RF: 12 cephalexin 500 mg tablet 500 mg PO TID Qty: 21 RF: 0 hydroxychloroquine 200 MG tablet 200 mg PO DAILY Qty: 90 RF: 4 pentoxifylline 400 mg tablet extended release 400 mg PO QDAY Qty: 60 RF: 0 lorazepam 0.5 mg tablet 0.5 - 1 mg PO BID PRN (Reason: anxiety) Qty: 30 RF: 0 pramipexole 1.5 mg tablet 1.5 mg PO QHS Qty: 90 RF: 0 Discharge Instructions Instructions: Abdominal Pain (ED) Additional Instructions: At this time you have a partial small bowel obstruction, and questionable mild intussusception. Your pain is well controlled now with your PUBLICITY AGENT pump, and Zofran will help control your nausea. Per our discussion you have elected to go home, however if you cannot keep liquids down, you develop continued vomiting, or your pain worsens please return for the admission that we discussed. Please stick with a liquid diet for the next 72 hours. Take the Zofran only as needed for nausea. If you notice any worsening of your symptoms, or any new symptoms such as vomiting, diarrhea, fever, chills, shortness of breath, chest pain, numbness, weakness, or fainting , please return immediately to the emergency department for reevaluation. Please follow up with your primary care provider as soon as possible for reassessment and reevaluation. As always, it was a pleasure participating in your medical care today. Referrals: Andreea Gould MD [Primary Care Provider] - Ready,Jessica Quiroz MD [ [facility] STAFF PHYSICIAN] - Medical Decision Making 59-year-old female with a past medical history of ovarian cancer on palliative care, presents today for evaluation of abdominal pain. Since around noon today for the last 12 hours she has had mild pain, and initially came on which she describes as a tingling sensation over her skin, epigastric pain and mild sweatiness. Throughout the evening it is progressed to notable nausea, and worsening pain in the epigastrium and periumbilical region. She has had no vomiting but has tried to make her self gag to no avail. She denies diarrhea currently but did have one slightly loose bowel movement earlier today. She denies any hematemesis or hematochezia. She denies any urinary symptoms. She denies any history of cardiac disease, chest pain, chest tightness, shortness of breath, fever, numbness or weakness. She has no other complaints at this time. She does state that her symptoms feel similar to when she had her previous SBO in the past. She does have a PUBLICITY AGENT pain pump. Physical exam demonstrates mild pain in the epigastric left upper and right upper quadrants of the abdomen. No lower abdominal pain. Vital signs are stable. Differential includes SBO, less likely gallbladder pathology. Will do CT scan, control her pain gently rehydrate monitor closely and reassess. Symptoms appear likely an atypical of cardiac etiology however we will evaluate for this as well. 4:16 AM Laboratory work-up is returned notably unremarkable, troponin EKG urinalysis all benign. No electrolyte or CBC abnormality. CT scan has returned and there is evidence of notable metastases, as well as partial obstruction secondary to adhesions. There is also a small bowel intussusception that is noted in the right abdomen appearing transient. On reassessment the patient is tolerated p.o. well, she is nauseous but she has been able to keep both her oral contrast and some extra water down. Zofran notably helps her symptoms. Patient's QT is notably benign, and appropriate for mild intermittent Zofran use currently. Patient's pain is resolved with her personal PUBLICITY AGENT pump. I did discuss this scenario with surgery/Dr. Carvalho. This time with the patient's clinical picture, and desires coming into play, patient would not be a surgical candidate in general especially with what is being seen on exam and CT scan. I did discuss with the patient admission/observation to the hospital for pain control and IV fluids and nausea control , and at this time through notable discussion, weighing the risks and benefits, utilizing a shared decision making process, and with a very clear discussion on the benefit of admission and the risks associated with discharge including the unlikely but potential worst case scenario of or lifelong disability the patient has refused admission and would like to go home. Patient is of a appropriate age to make decisions. The patient is of sound mind, appears clinically sober, and has capacity to make decisions by my clinical exam. Respecting the patient's wishes and taking into consideration the patient's unique clinical scenario, she will be discharged home. She will be given Zofran to go home with, and I do recommend prompt return for admission if she begins vomiting, is unable to keep down fluids, or has pain that cannot be controlled by her PUBLICITY AGENT pump. I have extensively reviewed the treatment plan and discharge instructions with the patient. I have addressed all patient concerns at this time. The patient was made aware of what symptoms to monitor for that would warrant a return to the emergency department. Discussed the plan with the patient, they demonstrate verbal understanding and agreement with our assessment and plan at this time. EKG 2: 22 Rate 63, sinus rhythm, intervals normal, no QT prolongation, no significant ST elevation or depression, no evidence of STEMI. IMPRESSION: Stable extensive osteoblastic metastases. Mild small bowel dilatation in the mid pelvis with a transition zone just deep to the area of suspected neoplasm in the left periumbilical abdominal wall concerning for partial obstruction secondary to adhesions or neoplastic involvement. Small bowel-small bowel intussusception in the right abdomen without bowel loop dilatation suggesting this may be a transient process. Thank you for allowing us to participate in the care of your patient. Dictated and Authenticated by: Melonie Hassan MD 03/25/2020 3:51 AM Eastern Time ([place] & [place]) HPI General Date/Time Provider Initiated Documentation: 03/25/20 01:24 . HPI Narrative: 59-year-old female with a past medical history of ovarian cancer on palliative care, presents today for evaluation of abdominal pain. Since around noon today for the last 12 hours she has had mild pain, and initially came on which she describes as a tingling sensation over her skin, epigastric pain and mild sweatiness. Throughout the evening it is progressed to notable nausea, and worsening pain in the epigastrium and periumbilical region. She has had no vomiting but has tried to make her self gag to no avail. She denies diarrhea currently but did have one slightly loose bowel movement earlier today. She denies any hematemesis or hematochezia. She denies any urinary symptoms. She denies any history of cardiac disease, chest pain, chest tightness, shortness of breath, fever, numbness or weakness. She has no other complaints at this time. She does state that her symptoms feel similar to when she had her previous SBO in the past. She does have a PUBLICITY AGENT pain pump. Related Data Home Medications Medication Instructions Recorded Confirmed hydroxychloroquine 200 mg PO DAILY #90 tab-cap 08/04/15 11/30/19 acetaminophen 500 mg tablet 1,000 mg PO Q8H PRN tab 06/04/19 11/30/19 calcium carbonate 500 mg calcium 500 mg PO DAILY 06/04/19 11/30/19 (1,250 mg) tablet cholecalciferol (vitamin D3) 50 2,000 unit PO DAILY 06/04/19 11/30/19 mcg (2,000 unit) capsule pentoxifylline 400 mg 400 mg PO QDAY #60 tab-cap 06/04/19 11/30/19 tablet,extended release prochlorperazine maleate 10 mg 10 mg PO Q6H PRN 06/04/19 11/30/19 tablet sennosides 8.6 mg-docusate sodium 1 tab PO BID PRN 06/04/19 11/30/19 50 mg tablet albuterol sulfate 90 mcg/actuation 2 puff IH Q6H PRN #18 gm 08/24/19 11/30/19 aerosol inhaler magnesium oxide 400 mg PO DAILY 09/08/19 11/30/19 polyethylene glycol 3350 17 17 gm PO DAILY 09/08/19 11/30/19 gram/dose oral powder lorazepam 0.5 mg tablet 0.5 - 1 mg PO BID PRN #30 tab 11/23/19 11/30/19 cephalexin 500 mg tablet 500 mg PO TID #21 tab 11/27/19 11/30/19 hydromorphone (PF)-0.9 % NaCl 0.2 0.2 mg IV Q10M PRN 11/30/19 11/30/19 mg/mL in 0.9 % sodium chloride intravenous soln pramipexole 1.5 mg tablet 1.5 mg PO QHS #90 tab 12/01/19 ondansetron HCl [Zofran] 4 mg PO Q8H #12 tab 03/25/20 Previous Rx's Medication Instructions Recorded albuterol sulfate 90 mcg/actuation 2 puff IH Q6H PRN #18 gm 08/24/19 aerosol inhaler lorazepam 0.5 mg tablet 0.5 - 1 mg PO BID PRN #30 tab 11/23/19 cephalexin 500 mg tablet 500 mg PO TID #21 tab 11/27/19 pramipexole 1.5 mg tablet 1.5 mg PO QHS #90 tab 12/01/19 ondansetron HCl [Zofran] 4 mg PO Q8H #12 tab 03/25/20 Allergies Allergy/AdvReac Type Severity Reaction Status Date / Time carboplatin Allergy flushing, Verified 11/30/19 11:03 difficulty breathing aspirin AdvReac Severe high dose Unverified 11/30/19 11:03 palpitations General Stated Complaint: Abd Prob ENZO: 3 Review of Systems All systems reviewed & are unremarkable except as noted in HPI and below PFSH Medical History (Updated 03/25/20 @ 04:10 by Andi Joshi DO) Antalgic gait (Acute) Anxiety Bone metastases (Acute) Cancer related pain (Acute) Chemotherapy adverse reaction (Acute) Encounter for hospice care discussion (Acute) Hypertension Lichen planus Lupus Malignant Alberto tumor (Acute) Nausea (Acute) Ovarian carcinoma 07/02/16 [facility]O lymph node disection at [facility]. Palliative care patient (Acute) Patient requests second opinion (Acute) PVD (peripheral vascular disease) Regional lymph node metastasis present (Acute) Restless leg syndrome (Acute) SBO (small bowel obstruction) (Resolved) pt concern for recurrence Thromboangiitis obliterans (Buerger's disease) Tobacco use stopped during [facility] hospitalization 06/2016. Uncontrolled pain (Resolved) Unintentional weight loss (Acute) Urinary frequency (Acute) Surgical History Abdominal hysterectomy (07/02/16) SINAN/BSO with pelvic lymph node dissection for L ovarian carcinoma. [facility] [place] Garcia 07/12/16 Exploratory laparotomy and enterectomy with single reanastomosis for small bowel obstruction. [facility] [place]. Garcia. 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 Pets and animals: Yes Pets and animals: cat(s) What is your relationship status?: How often do you talk on the phone with friends or family?: three or more times per week How often do you get together with friends or relatives?: three or more times per week Panel score (0-1 are the most socially isolated patients): 2 What type of physical activity do you participate in: walking and irregular exercise Duration: 15-30 minutes/day Frequency: 3-4 times per week Estefany/Denominational: Uatsdin Special estefany needs: No Agree to transfusion: Yes Seatbelt use: always Drive intox or ride w/intox interstate bus driver: No Fire extinguisher in home: Yes Do you feel safe at home: Yes Do you feel safe in your relationship?: Yes Additional Social history: Sam on disability. Money very tight. He is very sad. When they quit drinking after Barbara's first chemo, they lost a lot of friends. Barbara emphasizes the importance of being with her sons and their families. Also very close to her 5 sisters. He has less support than she does. She states she is not afraid of dying. Wants to know what is going on. Willing to try pall radiation and SC CADD pump for pain. Exam Narrative Exam Narrative: 1.Const: Well-nourished, Well-developed, appearing stated age 2.Eyes: PERRL, no conjunctival injection, and symmetrical lids. 3.ENT: Atraumatic external nose and ears. Moist MM. Neck: Symmetric, trachea midline, No thyromegaly. 4.CVS: +S1/S2, No murmurs or gallops. Peripheral pulses 2+ and equal in all extremities. Brisk capillary refill in all extremities. 5.RESP: Unlabored respiratory effort. Clear to auscultation bilaterally. No wheezes rales or rhonchi 6.GI: Soft, nondistended, mild epigastric pain and tenderness on palpation. No guarding. No rebound. Bowel sounds present. No pain at McBurney's point, negative Galdamez sign. 7.MSK: Normocephalic/Atraumatic, Extremities w/o deformity or ttp No cyanosis or clubbing, Normal movement of all extremities 8.Skin: Warm, Dry. No rashes or lesions. 9.Neuro: building components designer II-XII grossly intact. Sensation grossly intact, no focal neurologic deficits. 10.Psych: (AAO) x3. Appropriate mood and affect Course Vital Signs Vital signs: Vital Signs Temperature 35.9 C L 03/25/20 01:27 Pulse 86 03/25/20 01:27 Respiratory Rate 16 03/25/20 01:27 Blood Pressure 145/76 H 03/25/20 01:27 Pulse Oximetry 94 L 03/25/20 01:27 Temperature 35.9 C L 03/25/20 01:27 Temperature Source Temporal Artery Scan 03/25/20 01:27 Pulse 86 03/25/20 01:27 Respiratory Rate 16 03/25/20 01:27 Respiratory Effort 03/25/20 01:31 Blood Pressure 145/76 H 03/25/20 01:27 Blood Pressure Position Sitting 03/25/20 01:27 Pulse Oximetry 94 L 03/25/20 01:27 Oxygen Delivery Method Room Air 03/25/20 01:27 Oxygen Flow Rate 0 03/25/20 01:27
[2020-03-25] MEDS: Normal Saline 1,000 ML 1000 ML IV (01:40)
[2020-03-25 01:50] LABS: Abs Immature Grans 0.01 k/cumm (0.0-0.09); Absolute Basophil Count 0.04 k/cumm (0.0-0.2); Absolute Eosinophil Count 0.59 k/cumm (0.0-0.7); Absolute Lymphocyte Count 1.91 k/cumm (1.2-3.4); Absolute Monocyte Count 0.37 k/cumm (0.11-0.7); Absolute Neutrophil Count 4.93 k/cumm (1.2-6.7); Basophils % 0.5; Eosinophils % 7.5; HCT 42.6 % (36.0-46.0); HGB 14.1 g/dL (12.0-15.5); Immature Grans % 0.1 %; Lymphocytes % 24.3; Mean Corp. HGB Concentration 33.1 g/dL (32.0-36.0); Mean Corpuscular Hemoglobin 30.9 pg (27.0-33.0); Mean Corpuscular Volume 93.4 fL (80-95); Mean Platelet Volume 9.4 fL (8.0-11.0); Monocytes % 4.7; Neutrophils % 62.9; Platelet Count 267 x1000/uL (130-400); RBC 4.56 m/cumm (4.00-5.20); RBC Distribution Width 12.6 % (11.7-14.6); White Blood Cell Count 7.85 k/cumm (4.4-10.8)
[2020-03-25 02:00] LABS: PTT Activated 26.5 sec (21.0-31.4); Prothrombin Time 10.1 sec (9.3-11.0)
[2020-03-25 02:04] LABS: ALT 18 U/L (14-59); AST 18 U/L (15-37); Albumin 3.6 g/dL (3.4-5.0); Alkaline Phosphatase 117 U/L (46-116); Anion Gap 7.2 mmol/L (3-11); BUN 12 mg/dL (7-18); Bilirubin, Total 0.4 mg/dL (0.2-1.0); CO2 29.8 mmol/L (21.0-32.0); CREATININE 0.77 mg/dL (0.55-1.02); Calcium 9.3 mg/dL (8.5-10.1); Chloride 100 mmol/L (98-107); Glucose 135 mg/dL (74-106); Potassium 3.7 mmol/L (3.5-5.1); Sodium 137 mmol/L (136-145); Troponin I < 0.05 ng/Ml (<0.06)
[2020-03-25 02:11] LABS: Lipase 191 U/L (73-393)
[2020-03-25] MEDS: Ondansetron 4 MG/2 ML VIAL IVP ×2 (02:25→04:20)
[2020-03-25] MEDS: Omnipaque 350 MG/ML 50 ML BTL IJ (02:46)
--- NOTE | 2020-03-25 03:19 | DI.CT_ITS ---
EXAM: CT ABDOMEN PELVIS W CLINICAL HISTORY: epigastric abdominal pain, hx of SBO. TECHNIQUE: Imaging Protocol: Axial computed tomography images with coronal and sagittal reformatted images were created and reviewed CONTRAST MATERIAL: Intravenous: Omnipaque 350 Contrast volume 77 cc Oral: yes COMPARISON: CT CT CHEST/ABD/PEL W from 08/19/2019 FINDINGS: ABDOMEN: Lung Bases: Normal where visualized. Liver: Normal density. No measurable mass. Gallbladder and biliary tract: No radiodense calculus or dilation. Pancreas: Normal density, no abnormal calcifications or inflammatory process. Spleen: Normal. Kidneys: Normal size, contour and axis. No radiodense stones or obstructive uropathy. No masses seen. Adrenal glands: No masses seen. Abdominal Aorta: Abdominal portion non-dilated. Moderate calcification PELVIS: Soft tissues: There is a mass in the anterior abdominal wall to the left of the umbilicus. It measur es 2.2 x 2.6 cm and has increased in size when compared with the previous exam. It has an irregular appearance and likely represents a metastatic lesion. Bladder: Symmetric distention, no gross wall thickening. Bowel: Directly adjacent to the abdominal wall mass, there is a mildly dilated loop of bowel with a transition point which appears to cause partial obstruction. There is also a question of an area of s mall bowel intussusception in the right pelvis which may be transient. There is air and stool within the colon. Sigmoid diverticulosis is seen. The appendix appears normal.. Peritoneal cavity: There is a small amount of fluid in the pelvis.. Bones: Sclerotic lesions are again demonstrated in the spine and pelvis, consistent with bony metasta ses. Reproductive organs: Status post hysterectomy. Lymph nodes: No enlarged lymph nodes are identified. Multiple retroperitoneal surgical clips are not ed related to previous lymph node dissection. Impression: Increased size of abdominal wall mass near the umbilicus. It appears to cause partial obstruction by involvement with an adjacent loop of small bowel.. RADIATION DOSE DELIVERED: Total DLP DATA REPOSITORY: All CT scans at this facility are submitted to the National Radiology Data Registry (NRDR) Dose Index Registry (DIR) with the [employer] (ACR). RADIATION OPTIMIZATION: All CT scans at this facility use at least one of these dose optimization te chniques: automated exposure control; mA and/or kV adjustment per patient size (includes targeted exa ms where dose is matched to clinical indication); or iterative reconstruction.
[2020-03-25] MEDS: Normal Saline Flush 10 ML SYR IVP (03:20)
[2020-03-25 03:21] VITALS: BP 146/75; PULSE 64
[2020-03-25] MEDS: Breeza Beverage 473 ML BTL PO ×2 (03:21→03:22)
[2020-03-25] MEDS: Omnipaque 350 MG/ML 100 ML BTL IJ (03:21)
[2020-03-25] MEDS: Normal Saline - Diluent 50 ML VIAL IV (03:22)
[2020-03-25 03:35] VITALS: BP 153/90; PULSE 60; O2SAT 92
[2020-03-25 03:35] LABS: Bilirubin Negative (Negative); Blood Negative (Negative); Clarity Clear (Clear); Glucose Negative (Negative); Ketones Negative (Negative); Leukocyte Esterase Negative (Negative); Nitrite Negative (Negative); Specific Gravity 1.015 (1.005-1.025); Urobilinogen 0.2 EU/dL (Up TO 0.2)
--- NOTE | 2020-03-25 03:53 | DI.VRAD_ITS ---
PROCEDURE INFORMATION: Exam: CT Abdomen And Pelvis With Contrast Exam date and time: 03/25/2020 1:34 AM Age: 59 years old Clinical indication: Abdominal pain; Epigastric; Patient HX: HX CA, lupus. Recently completed chemo/radiation treatments for ovarian cancer. TECHNIQUE: Imaging protocol: Computed tomography of the abdomen and pelvis with intravenous contrast. Radiation optimization: All CT scans at this facility use at least one of these dose optimization techniques: automated exposure control; mA and/or kV adjustment per patient size (includes targeted exams where dose is matched to clinical indication); or iterative reconstruction. Contrast material: [id number]; Contrast volume: 77 ml; Contrast route: IV 20G RAC; Other contrast: Oral, [id number], 50; COMPARISON: CT CHEST/ABD/PEL W 08/19/2019 10:07 AM , CT chest, abdomen and pelvis 12/18/2016 FINDINGS: Liver: Normal. No mass. Gallbladder and bile ducts: Normal. No calcified stones. No ductal dilation. Pancreas: Normal. No ductal dilation. Spleen: Normal. No splenomegaly. Adrenals: Normal. No mass. Kidneys and ureters: Normal. No hydronephrosis. Stomach and bowel: There is a small bowel-small bowel intussusception in the right pelvis without significant adjacent bowel dilatation suggesting this may be transient process, image 378 of series 5 . There is also a minimally dilated loop of small bowel in the midline pelvis with suggestion of a transition zone in the anterior pelvis where the small bowel appears involved with or adherent to a suspected anterior abdominal wall mass, suggesting partial small bowel obstruction. Appendix: Normal appendix. Intraperitoneal space: Small amount of free fluid in the pelvis. Vasculature: Unremarkable. No abdominal aortic aneurysm. Lymph nodes: Surgical clips are seen throughout the retroperitoneum related to prior lymph node dissection. No pathologic sized adenopathy. Bladder: Unremarkable as visualized. Reproductive: Hysterectomy. Bones/joints: Previously seen extensive sclerotic metastatic disease throughout the pelvis and spine appears unchanged. No pathologic fracture. Soft tissues: There is a lobular region of soft tissue density in the anterior abdominal wall just to the left of the umbilicus measuring 2.2 x 2.6 cm concerning for neoplasm. Previously, this measured 1.4 x 1.3 cm on 08/19/2019 and was not seen on the prior CT from 2016. IMPRESSION: Stable extensive osteoblastic metastases. Mild small bowel dilatation in the mid pelvis with a transition zone just deep to the area of suspected neoplasm in the left periumbilical abdominal wall concerning for partial obstruction secondary to adhesions or neoplastic involvement. Small bowel-small bowel intussusception in the right abdomen without bowel loop dilatation suggesting this may be a transient process. Dictated and Authenticated by: Melonie Hassan MD. Ordering:GAGE Escamilla MD
[2020-03-25 04:01] VITALS: BP 132/78; PULSE 67; O2SAT 94
[2020-03-25] MEDS: Ondansetron O.D.T. 4 MG TABEF, 3 TABS/BTL PO (04:20)
== END 2020-03-25 04:25 | disposition home or self-care (01) ==
PROVIDERS: Emergency Provider Student in an Organized Health Care Education/Training Program; PCP Family Medicine
DX: K56.1 Intussusception (principal); K56.51 Intestinal adhesions [bands], with partial obstruction; R11.0 Nausea; C56.9 Malignant neoplasm of unspecified ovary; Z51.5 Encounter for palliative care; Z97.8 Presence of other specified devices; I10 Essential (primary) hypertension
CPT/HCPCS: 36415; 80053; 83690; 93005; 96361; 96374; 96376; 99285; 74177; 81003; 83605; 84484; 85025; 85610; 85730; 93010; J2405; J3490; Q9967

== ENCOUNTER 2020-05-03 15:58 | Inpatient (IN) | payer OTHER, SELFPAY ==
[2020-05-03 16:17] VITALS: BP 96/69; PULSE 119; RESP 18; TEMP 37.1; O2SAT 91
[2020-05-03] MEDS: Scopolamine 1 MG/3 DAYS PATCH TD (16:47)
[2020-05-03 16:49] VITALS: BP 96/69; PULSE 119; RESP 18; TEMP 37.1; O2SAT 91
--- NOTE | 2020-05-03 18:00 | HPE_ITS ---
Date of service: 05/03/20 Time of Service: 18:01 Assessment and Plan Assessment and plan (1) SBO (small bowel obstruction): Status: Resolved Assessment and plan: Barbara Rodriguez has a history of SBO, now with symptoms consistent with recurrent SBO including no bowel movement x5 days, nausea and vomiting, abdominal pain and distention. Also with recent CT on 03/25/2020 showing an increase in size of an abdominal wall mass near the umbilicus, which appeared to be causing a partial bowel obstruction by involvement with an adjacent loop of small bowel. At that time, the mass was noted to be 2.2 x 2.6 cm and had an irregular appearance likely representing a metastatic lesion. She is admitted on hospice symptom management for treatment of likely recurrent SBO. No further imaging at this time as it would not likely mash filter cloth changer. Insert NG tube, she will be kept n.p.o. with IV fluids and antiemetics. Aqua K Amado to abdomen for comfort. Continue hydromorphone via CADD pump with boluses as needed for pain management. Hospice will continue to follow. (2) Nausea: Status: Acute Assessment and plan: IV or oral Zofran as needed for nausea. Scopolamine patch has been placed. (3) Cancer related pain: Status: Acute Assessment and plan: Continue hydromorphone pump. 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 Continue pain control with hydromorphone pump with boluses as needed. (5) Malignant Alberto tumor: Status: Acute Assessment and plan: As above. (6) Tobacco abuse: Status: Acute Assessment and plan: Former smoker. Nicotine patch ordered. (7) Anxiety: Status: Acute Assessment and plan: Lorazepam as needed for anxiety. (8) Hospice care patient: Status: Acute Assessment and plan: Barbara is a hospice patient, currently admitted for symptom management for presumed small bowel obstruction. She will remain on symptom management until she is stable enough to transition to respite or return home with her . Hospice will continue to follow while she is a patient in the hospital. History of Present Illness History of Present Illness Chief Complaint: Constipation, nausea and vomiting Narrative: Barbara Rodriguez is a very pleasant 59-year-old female who is on hospice for metastatic ovarian cancer with a rare Alberto tumor. She also has a history of anxiety, depression, hypertension in the past, lupus, Raynolds disease, former tobacco abuse, and history of small bowel obstruction in the past. She is on a hydromorphone pump for pain. She has been reporting abdominal pain, a feeling of fullness/bloating and inability to pass a bowel movement for several days. She was seen in the emergency department recently on 03/25/2020, and had a CT chest abdomen and pelvis at that time, note was made of an increase in the size of the previously noted abdominal wall mass near the umbilicus which appeared to cause a partial bowel obstruction by involvement with an adjacent loop of small bowel, which raises suspicion for small bowel obstruction in the setting of her symptoms at this time. she is admitted to the hospital on symptom management for hospice for suspected small bowel obstruction. Barbara reports that she has not had a bowel movement in 5 days. She feels bloated and full. She has had nausea with vomiting. She has been able to drink limited amounts but has not been able to tolerate a diet. She reports her abdominal pain is all over her abdomen and she rates it at a 5-6 out of 10 at p resent. She has not recently used a bolus on her CADD pump. She is interested in a heat pack to her abdomen. She denies any other concerns such as dizziness, chest pain/pressure, palpitations, shortness of breath, coughing, wheezing, edema, dysuria or hematuria. She is able to ambulate in her home at baseline. Review of Systems All systems reviewed & are unremarkable except as noted in HPI and below PFSH Medical History Antalgic gait (Acute) Anxiety Bone metastases (Acute) Cancer related pain (Acute) Chemotherapy adverse reaction (Acute) Encounter for hospice care discussion (Acute) Hospice care patient (Acute) Hypertension Lichen planus Lupus Malignant Alberto tumor (Acute) Nausea (Acute) Ovarian carcinoma 07/02/16 SINAN/BSO lymph node disection at [facility] [place]. Palliative care patient (Acute) Patient requests second opinion (Acute) PVD (peripheral vascular disease) Regional lymph node metastasis present (Acute) Restless leg syndrome (Acute) SBO (small bowel obstruction) (Resolved) pt concern for recurrence Thromboangiitis obliterans (Buerger's disease) Tobacco use stopped during [facility] hospitalization 06/2016. Uncontrolled pain (Resolved) Unintentional weight loss (Acute) Urinary frequency (Acute) Surgical History Abdominal hysterectomy (07/02/16) SINAN/BSO with pelvic lymph node dissection for L ovarian carcinoma. [facility] [place] Dr. Garcia 07/12/16 Exploratory laparotomy and enterectomy with single reanastomosis for small bowel obstruction. [facility] [place] Dr. Garcia. Colonoscopy - MAC (02/14/18) Family History Mother , AGE 78 Essential hypertension Hyperlipidemia Stroke Father , age 46 Lung cancer Sister No problems noted. Sister No problems noted. Sister No problems noted. Sister No problems noted. Sister No problems noted. Paternal Grandfather Stroke Son No problems noted. 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 Pets and animals: Yes Pets and animals: cat(s) What is your relationship status?: How often do you talk on the phone with friends or family?: three or more times per week How often do you get together with friends or relatives?: three or more times per week Panel score (0-1 are the most socially isolated patients): 2 What type of physical activity do you participate in: walking and irregular ex ercise Duration: 15-30 minutes/day Frequency: 3-4 times per week Estefany/Worship: Adventism Special estefany needs: No Agree to transfusion: Yes Seatbelt use: always Drive intox or ride w/intox cdl company flatbed driver: No Fire extinguisher in home: Yes Do you feel safe at home: Yes Do you feel safe in your relationship?: Yes Additional Social history: Sam on disability. Money very tight. He is very sad. When they quit drinking after Barbara's first chemo, they lost a lot of friends. Barbara emphasizes the importance of being with her sons and their families. Also very close to her 5 sisters. He has less support than she does. She states she is not afraid of dying. Wants to know what is going on. Willing to try pall radiation and SC CADD pump for pain. Meds Home Medications and Allergies Home Medications Medication Instructions Recorded Confirmed Type acetaminophen 500 mg tablet 1,000 mg PO Q8H PRN tab 06/04/19 05/03/20 History calcium carbonate 500 mg calcium 500 mg PO PRN PRN 06/04/19 05/03/20 History (1,250 mg) tablet pentoxifylline 400 mg 400 mg PO QDAY #60 tab-cap 06/04/19 05/03/20 History tablet,extended release prochlorperazine maleate 10 mg See Rx Instructions .ROUTE 06/04/19 05/03/20 History tablet .COMPLEX PRN sennosides 8.6 mg-docusate sodium 1 tab PO BID PRN 06/04/19 05/03/20 History 50 mg tablet albuterol sulfate 90 mcg/actuation 2 puff IH Q6H PRN #18 gm 08/24/19 05/03/20 Rx aerosol inhaler polyethylene glycol 3350 17 17 gm PO BID 09/08/19 05/03/20 History gram/dose oral powder hydromorphone (PF) 10 mg/mL See Rx Instructions .ROUTE 04/02/20 05/03/20 Rx injection solution .COMPLEX PRN #100 ml MDD 100 mg fexofenadine 60 mg PO PRN PRN 05/03/20 05/03/20 History gabapentin See Rx Instructions .ROUTE .COMPLEX 05/03/20 05/03/20 History haloperidol lactate 0.5 mg PO PRN PRN 05/03/20 05/03/20 History hyoscyamine sulfate 0.125 - 0.25 mg PO .Q4H,PRN 05/03/20 05/03/20 History lorazepam 0.5 - 1 mg PO TID PRN PRN 05/03/20 05/03/20 History nicotine 1 patch TRANSDERMAL DAILY 05/03/20 05/03/20 History prednisone 5 mg PO DAILY 05/03/20 05/03/20 History promethazine 12.5 - 25 mg PO PRN PRN 05/03/20 05/03/20 History senna 8.6 - 17.2 mg PO PRN PRN 05/03/20 05/03/20 History trazodone 50 - 100 mg PO HS 05/03/20 05/03/20 History Allergies Allergy/AdvReac Type Severity Reaction Status Date / Time carboplatin Allergy flushing, Verified 11/30/19 11:03 difficulty breathing aspirin AdvReac Severe high dose Unverified 11/30/19 11:03 palpitations Exam Narrative Exam Narrative: General: 59-year-old female, appears stated age, laying in bed with head of bed elevated. Holding abdomen, in no acute distress. Alert, appears answer questions appropriately, however, after speaking with nursing, her story differs from her 's. HEENT: Normocephalic, atraumatic, pupils small, equal and round, EOMI, mucous membranes slightly dry. Neck: Supple, no JVD. Cardiovascular: Heart sounds regular, tachycardic, no murmur appreciated. Respiratory: Respirations appear even and unlabored, expiratory wheezing noted throughout lung plaza bilaterally. GI: Abdomen appears distended, hypoactive bowel sounds, firm on palpation, tender on palpation of entire abdomen. Midline scar noted on lower abdomen. Extremities: No clubbing, cyanosis or edema Results Last Vital Signs Temp 37.1 C 05/03/20 16:49 Pulse 119 H 05/03/20 16:49 Resp 18 05/03/20 16:49 BP 96/69 L 05/03/20 16:49 Pulse Ox 91 L 05/03/20 16:49 COVID-19 Screening In the past 14 days, have you traveled outside of [place] or [place]?: NO Had IN PERSON contact w/suspected or confirmed C-19 person: No
[2020-05-03] MEDS: Lidocaine 2% Jelly 5 ML TUBE TP (18:32)
[2020-05-03] MEDS: Nicotine 14 MG/24 HR PATCH TD (18:32)
[2020-05-03] MEDS: Normal Saline 1,000 ML 100 ML IV (19:19)
[2020-05-04] MEDS: Normal Saline 1,000 ML 100 ML IV (04:46)
[2020-05-04 07:13] VITALS: BP 91/57; PULSE 83; RESP 17; TEMP 37.4; O2SAT 85
[2020-05-04 07:22] VITALS: BP 98/62; O2SAT 86
[2020-05-04 07:40] VITALS: O2SAT 83
[2020-05-04] MEDS: Nicotine 14 MG/24 HR PATCH TD (08:15)
[2020-05-04] MEDS: LORazepam 1 MG TAB PO (13:48)
[2020-05-04] MEDS: Normal Saline 1,000 ML 125 ML IV (14:21)
--- NOTE | 2020-05-04 14:29 | W.PM.PROGNOT ---
Date of Service Date of service: 05/04/20 Time of Service: 14:29 Assessment and Plan Assessment and plan (1) SBO (small bowel obstruction): Status: Resolved Assessment and plan: Barbara Rodriguez has a history of SBO, she was admitted to the hospital for hospice symptoms management for symptoms consistent with recurrent Bowel Obstruction including no bowel movement x5 days, nausea and vomiting, abdominal pain and distention. Also with recent CT on 03/25/2020 showing an increase in size of an abdominal wall mass near the umbilicus, which appeared to be causing a partial bowel obstruction by involvement with an adjacent loop of small bowel. At that time, the mass was noted to be 2.2 x 2.6 cm and had an irregular appearance likely representing a metastatic lesion. She did not have further imaging at the time of admission as it would not likely change management consultant. An NG tube was inserted, she has had significant output overnight, first brown, then green. She put out 550 ml of brown/green fluid over the 4 hours prior to my arrival. She will remain n.p.o. Increase IV fluids to 125 cc/hr as she has reported lightheadedness. Continue PRN antiemetics. Aqua K Amado to abdomen for comfort. Continue hydromorphone via CADD pump with boluses as needed for pain management. Hospice will continue to follow. (2) Nausea: Status: Acute Assessment and plan: No nausea at this time. Continue IV or oral Zofran as needed for nausea. Continue Scopolamine patch. (3) Cancer related pain: Status: Acute Assessment and plan: Continue hydromorphone pump. 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 Continue pain control with hydromorphone pump with boluses as needed. (5) Malignant Alberto tumor: Status: Acute Assessment and plan: As above. (6) Tobacco abuse: Status: Acute Assessment and plan: Former smoker. Nicotine patch ordered. (7) Anxiety: Status: Acute Assessment and plan: Lorazepam as needed for anxiety. (8) Hospice care patient: Status: Acute Assessment and plan: Barbara is a hospice patient, currently admitted for symptom management for presumed small bowel obstruction. She will remain on symptom management until she is stable enough to transition to respite or return home with her . Hospice will continue to follow while she is a patient in the hospital. Subjective Subjective Interval history since last seen: This is a hospice note. Barbara Rodriguez has had 550 ml of brown/green drainage from her NG tube over the last 4 hours. Unfortunately, the NG tube came out just prior to my visit. Barbara was hesitant initially to have the NG tube reinserted. We were going to give her a little time to see if she began to have symptoms again, however, she decided to allow nursing to replace the tube. At this time, she is not having any abdominal pain, nausea, or vomiting. She has not passed any stool. She is passing flatus, nursing reports + bowel sounds. She has not been able to ambulate frequently due to being restricted by having the NG tube in place. Her right hip pain is under control with her dilaudid cadd pump. Nursing reports a new onset of a wet cough, they are questioning possible aspiration. She reports an occasional cough, no SOB or difficulty breathing, wheezing, chest pain/pressure or palpitations. She reports that she occasionally feels lightheaded when she stands up. She is looking forward to eating and going home when she can. Exam Narrative Exam Narrative: General: 59-year-old female, appears stated age, laying in bed with head of bed elevated. Holding abdomen, in no acute distress. Alert, appears answer questions appropriately, however, after speaking with nursing, her story differs from her 's. HEENT: Normocephalic, atraumatic, pupils small, equal and round, EOMI, mucous membranes slightly dry. Neck: Supple, no JVD. Cardiovascular: Heart sounds regular, tachycardic, no murmur appreciated. Respiratory: Respirations appear even and unlabored, expiratory wheezing noted throughout lung plaza bilaterally. GI: Abdomen appears distended, hypoactive bowel sounds, abdomen is soft on palpation, with the exception of a firm area to the left of her umbilical scar, minimal tenderness noted on palpation abdomen. Midline scar noted on lower abdomen. Extremities: No clubbing, cyanosis or edema Objective Objective Clinical Data: Vital Signs Temperature 37.4 C 05/04/20 07:13 Temperature Source Tympanic 05/04/20 07:13 Pulse 83 05/04/20 07:13 Pulse Rhythm Regular 05/04/20 02:06 Respiratory Rate 17 05/04/20 07:13 Respiratory Effort Non-Labored 05/04/20 02:06 Respiratory Depth Shallow 05/04/20 07:40 Respiratory Pattern Normal 05/04/20 07:40 Blood Pressure 98/62 L 05/04/20 07:22 Pulse Oximetry 83 L 05/04/20 07:40 Oxygen Delivery Method Room Air 05/04/20 07:40 Oxygen Flow Rate 0 05/04/20 07:40 Pain Level 7 05/04/20 07:13 Comment 05/04/20 07:22 Intake & Output 05/03/20 05/04/20 05/04/20 23:59 11:59 23:59 Intake Total 945 / 1906.667 961.667 / 1906.667 Output Total 800 / 1300 500 / 1300 Balance 145 / 606.667 461.667 / 606.667 Weight 55.4 kg Intake: IV 945 / 1906.667 961.667 / 1906.667 Output: Gastric Drainage 500 / 1000 500 / 1000 Left Nare 500 / 1000 500 / 1000 Urine 300 / 300 Other: Urine Color Light Polnia Urine Appearance Clear Clear Urine Odor Normal Voiding Methods Toilet Bedside Commode
[2020-05-04] MEDS: Lidocaine 2% Jelly 11 ML SYR (14:54)
--- NOTE | 2020-05-04 16:03 | PDOC.CMPRO ---
Care Management Progress Note Barbara is a hospice patient, currently admitted for symptom management for presumed small bowel obstruction. She will remain on symptom management until she is stable enough to transition to respite or return home with her . Hospice will continue to follow while she is a patient in the hospital. She was moved to the Covid-Unit due to developing a new cough. CM will continue to follow and support Barbara and Hospice with discharge planning considerations.
[2020-05-05] MEDS: Normal Saline 1,000 ML 125 ML IV (06:01)
[2020-05-05 06:39] LABS: COVID-19 RT-PCR UVMMC Result Negative (Negative)
[2020-05-05 07:10] VITALS: BP 95/59; PULSE 86; RESP 18; TEMP 36.8; O2SAT 90
[2020-05-05] MEDS: Nicotine 14 MG/24 HR PATCH TD (07:30)
[2020-05-05 08:56] VITALS: BP 95/59; PULSE 86; RESP 18; TEMP 36.8; O2SAT 90
--- NOTE | 2020-05-05 09:46 | W.SURGCON ---
Date of service: 05/05/20 Time of Service: 09:46 Assessment and Plan Assessment and plan (1) Tobacco abuse: Status: Acute (2) Hospice care patient: Status: Acute (3) SBO (small bowel obstruction): Status: Resolved Assessment and plan: At this time- I favor fecal impaction over SBO. Pt certainly has risk factors for mechanical SBO- she has tumor that is tethering a loop of bowel up to the ant peritoneal surface. She has had an SBO 2nd to adhesions for which she had a laparotomy in the past. But based on physical findings and her XR today- I do favor impaction. Will try reglan and Mg citrate and clamp NGT and so how she does. She is up walking. If this is truly a mechanical obstruction- she is a poor surgical candidate. Her life expectancy is less than a month and she is very adamant about not wanting to be in the hospital. Continued NGT decompression is prob her best /easiest option. We will work on finding a suction machine for at home prn drainage. Prob every 1-3hrs for 10 mins. Let nausea/distention and discomfort be your guide. History of Present Illness Narrative: Increased size of abdominal wall mass near the umbilicus. It appears to cause partial obstruction by involvement with an adjacent loop of small bowel.. From CT on 03/25 Pt was admitted w/ n/v. She was vomiting feculent material per . Pt last BM was Saturday. She has not been eating well. Increase abdominal distention and bloating. Pt has put out 1500 from NGT since 7am. But she has also been drinking water. It does have a dark coffee ground appearance. She does any abdominal pain or bloating at this point. She has been passing some gas this afternoon. She doesn't have a hx of gerd/ulcers. Flate plate of the abdom this am does show a normal bowel gas pattern and old stool. SHe is on Dialudid pain pump that delivers 1mg/Hr. She has been on a bowel regimine of Miralax BID and stool softners. Pt has had an open SINAN for ovarian cancer & and an Ex lap for SBO. Consults Consult date: 05/05/20 Review of Systems All systems reviewed & are unremarkable except as noted in HPI and below PFSH Medical History Antalgic gait (Acute) Anxiety Bone metastases (Acute) Cancer related pain (Acute) Chemotherapy adverse reaction (Acute) Encounter for hospice care discussion (Acute) Hospice care patient (Acute) Hypertension Lichen planus Lupus Malignant Alberto tumor (Acute) Nausea (Acute) Ovarian carcinoma 07/02/16 SINAN/BSO lymph node disection at [facility]. Palliative care patient (Acute) Patient requests second opinion (Acute) PVD (peripheral vascular disease) Regional lymph node metastasis present (Acute) Restless leg syndrome (Acute) SBO (small bowel obstruction) (Resolved) pt concern for recurrence Thromboangiitis obliterans (Buerger's disease) Tobacco abuse (Acute) Tobacco use stopped during [facility] hospitalization 06/2016. Uncontrolled pain (Resolved) Unintentional weight loss (Acute) Urinary frequency (Acute) Surgical History Abdominal hysterectomy (07/02/16) SINAN/BSO with pelvic lymph node dissection for L ovarian carcinoma. [facility] Dr. Garcia 07/12/16 Exploratory laparotomy and enterectomy with single reanastomosis for small bowel obstruction. [facility] Dr. Garcia. Colonoscopy - MAC (02/14/18) Family History Mother , AGE 78 Essential hypertension Hyperlipidemia Stroke Father , age 46 Lung cancer Sister No problems noted. Sister No problems noted. Sister No problems noted. Sister No problems noted. Sister No problems noted. Paternal Grandfather Stroke Son No problems noted. 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 Pets and animals: Yes Pets and animals: cat(s) What is your relationship status?: How often do you talk on the phone with friends or family?: three or more times per week How often do you get together with friends or relatives?: three or more times per week Panel score (0-1 are the most socially isolated patients): 2 What type of physical activity do you participate in: walking and irregular exercise Duration: 15-30 minutes/day Frequency: 3-4 times per week Estefany/Hindu: Yazidi Special estefany needs: No Agree to transfusion: Yes Seatbelt use: always Drive intox or ride w/intox guard driver: No Fire extinguisher in home: Yes Do you feel safe at home: Yes Do you feel safe in your relationship?: Yes Additional Social history: Sam on disability. Money very tight. He is very sad. When they quit drinking after Barbara's first chemo, they lost a lot of friends. Barbara emphasizes the importance of being with her sons and their families. Also very close to her 5 sisters. He has less support than she does. She states she is not afraid of dying. Wants to know what is going on. Willing to try pall radiation and SC CADD pump for pain. Exam Resp Effort & Inspection: normal respiratory effort and able to speak in complete sentences Auscultation: clear to auscultation bilaterally Cardio Rate: regular rate Rhythm: regular rhythm GI Inspection: scar Other: no distention. minimal abdominal pain. No hernias. She does have bowel sounds- hypoactive but present. Results Last Vital Signs Temp 36.8 C 05/05/20 08:56 Pulse 86 05/05/20 08:56 Resp 18 05/05/20 08:56 BP 95/59 L 05/05/20 08:56 Pulse Ox 90 L 05/05/20 08:56 Labs Labs: Laboratory Results - last 24 hr 05/04/20 08:00 COVID-19 PCR Negative Nasopharyn COVID-19 PCR Not Applicable Ref Test Perform Site [facility] lab
--- NOTE | 2020-05-05 10:11 | DI.RAD_ITS ---
EXAM: 2D digital imaging was performed. CLINICAL HISTORY: SBO. COMPARISON: CT CT ABDOMEN PELVIS W from 03/25/2020 TECHNIQUE: Supine and upright views of the abdomen performed. FINDINGS: Heart size is normal. The visualized portions of the lungs appear clear. There is no evidence of fr ee air. BOWEL GAS PATTERN: Nondistended. CALCIFICATIONS: No radiopaque calcifications. OSSEOUS STRUCTURES: Widespread sclerotic bony metastases in the lumbar spine and pelvis. OTHER FINDINGS: Nasogastric tube projects in the stomach. Multiple surgical clips are seen. IMPRESSION: 1. Nonobstructive bowel gas pattern. Nasogastric tube projects in the stomach 2. Widespread sclerotic bony metastases DATA REPOSITORY: RADIATION DOSE DELIVERED:
--- NOTE | 2020-05-05 11:40 | CMPROGNOTE_ITS ---
Care Management Progress Note Barbraa would like to return home today, per Dr. Cervantes, Barbara will return home with an NG tube and resume Hospice supports. Undetermined if she will require suctioning at this time; Hospice: [facility]: Respiratory and this mortgage or loan underwriter working on attaining DME if needed. Awaiting bowel movement to inform discharge planning needs, if Barbara has a BM, she will return home this afternoon. If not, Dr. Cervantes will return to [facility] to review discharge considerations, though it is anticipated that Barbara will still discharge home today. CM continues to follow.
[2020-05-05] MEDS: LORazepam 1 MG TAB PO ×2 (12:02→13:54)
[2020-05-05] MEDS: Magnesium Citrate 300 ML BTL PO (12:33)
--- NOTE | 2020-05-05 13:15 | W.NUTRFU ---
Date of service: 05/05/20 Time of Service: 13:16 Nutritional Follow up NOTE: 59 year old female admitted for symptom management on Hospice care. Currently NPO. Will be available prn. Time Spent in Nutritional Counseling and Treatment: 0
--- NOTE | 2020-05-05 13:52 | W.PM.DS.N ---
Date of service: 05/05/20 DS: Diagnosis Discharge Diagnosis (1) SBO (small bowel obstruction): Status: Resolved Asessment and Plan: Going home with NGT in place. Ordered home suction device to be used intermittently. Every 2-3 hours scheduled while awake Barbara Vargas (her spouse) is to turn on the suction machine for 10 minutes. If she develops abdominal distension or nausea, she can use it prn. She should not use the suction for 1 hour after eating or taking medication. She is to have a liquid only diet. She may have milkshakes with protein power, smoothies with pureed fresh veggies, etc. She did have a bm prior to going home. While inpatient, she had multiple bowel medications. Likely, the combination of mag citrate, relistor, regland, miralax and dulcolax suppositories worked. She will need to continue with an aggressive bowel regimen at home. (2) Nausea: Status: Resolved Asessment and Plan: has anti-emetics at home associated with her partial SBO and severe constipation/obstipation. (3) Cancer related pain: Status: Chronic Asessment and Plan: controlled on her hydromorphone SC pump refilled script prior to discharge (4) Malignant neoplasm of ovary: Status: Chronic Asessment and Plan: tumor growing locally Barbara losing weight, having less energy (5) Malignant Alberto tumor: Status: Chronic (6) Tobacco abuse: Status: Chronic Asessment and Plan: asked for a patch as an inpatient doesn't want to use at home life expectancy too short to worry about quitting (7) Anxiety: Status: Chronic Asessment and Plan: worried about how long she has to live I think she still has weeks, but unlikely to live to the fall (8) Hospice care patient: Status: Chronic Discharge Plan Disposition Patient Disposition: HOME W/HOME HEALTH SERVICE Condition: Deteriorating Discharge Details Reason For Visit: SBO, HOSPICE PT, OVARIAN CANCER Admit Date/Time: 05/03/20 15:58 Admit Provider: Jessica Cervantes Attending Provider: Jessica Cervantes Primary Care Provider: Andreea Gould Home Meds and New Rx's Prescriptions: New bisacodyl 10 mg Suppository 10 mg RI BID PRN PRN14 Days RF: 0 scopolamine base [Transderm-Scop] 1 mg over 3 days Patch 3 Day 1 mg transdermal Q72H Qty: 5 RF: 0 ondansetron 4 mg Tablet,Disintegrating 4 - 8 mg PO Q6H PRN PRN14 Days RF: 0 Continued acetaminophen 500 mg tablet 1,000 mg PO Q8H PRNRF: 0 sennosides-docusate sodium [Senna with Docusate Sodium] 8.6-50 mg tablet 1 tab PO BID PRNRF: 0 polyethylene glycol 3350 17 gram/dose powder 17 gm PO BID RF: 0 albuterol sulfate [Ventolin HFA] 90 mcg/actuation HFA aerosol inhaler 2 puff IH Q6H PRN (Reason: shortness of breath) Qty: 18 RF: 12 lorazepam 0.5 mg tablet 0.5 - 1 mg PO TID PRN PRN (Reason: anxiety) RF: 0 trazodone 50 mg Tablet 50 - 100 mg PO HS RF: 0 promethazine 12.5 mg Tablet 12.5 - 25 mg PO PRN PRNRF: 0 hyoscyamine sulfate 0.125 mg Tablet 0.125 - 0.25 mg PO .Q4H,PRN RF: 0 haloperidol lactate 2 mg/mL Concentrate 0.5 mg PO PRN PRNRF: 0 Discontinued calcium carbonate 500 mg calcium (1,250 mg) tablet 500 mg PO PRN PRNRF: 0 prochlorperazine maleate 10 mg tablet See Rx Instructions .ROUTE .COMPLEX PRNRF: 0 pentoxifylline 400 mg tablet extended release 400 mg PO QDAY Qty: 60 RF: 0 nicotine 14 mg/24 hr Patch 24 Hour 1 patch TRANSDERMAL DAILY RF: 0 fexofenadine 60 mg Tablet 60 mg PO PRN PRNRF: 0 prednisone 5 mg Tablet 5 mg PO DAILY RF: 0 gabapentin 100 mg Capsule See Rx Instructions .ROUTE .COMPLEX RF: 0 senna 8.6 mg Capsule 8.6 - 17.2 mg PO PRN PRNRF: 0 No Action hydromorphone (PF) 10 mg/mL solution See Rx Instructions .ROUTE .COMPLEX MDD 100 mg PRN (Reason: pain) Qty: 100 RF: 0 Discharge Instructions Stand Alone Forms: Nursing Discharge Form Activity:: Activity as Tolerated Equipment/Supplies:: suction Diet:: liquids Discharge Orders Discharge Orders: Discharge Order (Routine); Ordered 05/05/20 Ordered By: Jessica Quiroz Ready Discharge Data Discharge Date/Time-TO BE ENTERED AT DEPARTURE: 05/05/20 16:24 DS: Summary Status at Discharge Functional status at discharge: uses cane/walker Overall status at discharge: patient is back to baseline Mental Status: mental status grossly normal Speech and Movement: speech and movement normal Mood: anxious mood Affect: anxious affect Exam Psych Mental Status: mental status grossly normal Speech and Movement: speech and movement normal Mood: anxious mood Affect: anxious affect DS: Data Vitals/I&O Vitals and I&O: Vital Signs Temperature 98.2 F 05/05/20 08:56 Temperature Source Tympanic 05/05/20 07:10 Pulse 86 05/05/20 08:56 Pulse Rhythm Regular 05/04/20 02:06 Respiratory Rate 18 05/05/20 08:56 Respiratory Effort Non-Labored 05/05/20 11:52 Respiratory Depth Normal 05/05/20 11:52 Respiratory Pattern Normal 05/05/20 11:52 Blood Pressure 95/59 L 05/05/20 08:56 Pulse Oximetry 90 L 05/05/20 08:56 Oxygen Delivery Method Room Air 05/05/20 08:56 Oxygen Flow Rate 0 05/05/20 08:56 Pain Level 0 05/05/20 07:10 Comment 05/04/20 07:22 Intake & Output 05/04/20 05/05/20 05/05/20 23:59 11:59 23:59 Intake Total 1961.667 / 2906.667 Output Total 1400 / 2200 1150 / 2150 1000 / 2150 Balance 561.667 / 706.667 -1130 / -2130 -1000 / -0 Intake: IV 1.667 / 2906.667 Output: Gastric Drainage 1400 / 1900 1150 / 2150 1000 / 2150 Left Nare 1400 / 1900 1150 / 2150 1000 / 2150 Other: Urine Color Yellow Urine Appearance Clear Clear Urine Odor None Comment Urine not measured. Pt voided quantity sufficient. Voiding Methods Toilet Data Completed and Pending Labs on day of discharge: Labs from last 24 hours 05/04/20 08:00 COVID-19 PCR Negative Nasopharyn COVID-19 PCR Not Applicable Ref Test Perform Site [place] [facility] Medical History Antalgic gait (Acute) Anxiety Bone metastases (Acute) Cancer related pain (Chronic) Chemotherapy adverse reaction (Acute) Encounter for hospice care discussion (Acute) Hospice care patient (Acute) Hypertension Lichen planus Lupus Malignant Alberto tumor (Chronic) Nausea (Resolved) Ovarian carcinoma 07/02/16 [facility] lymph node disection at [facility]. Palliative care patient (Acute) Patient requests second opinion (Acute) PVD (peripheral vascular disease) Regional lymph node metastasis present (Acute) Restless leg syndrome (Acute) SBO (small bowel obstruction) (Resolved) pt concern for recurrence Thromboangiitis obliterans (Buerger's disease) Tobacco abuse (Chronic) Tobacco use stopped during [facility] hospitalization 06/2016. Uncontrolled pain (Resolved) Unintentional weight loss (Acute) Urinary frequency (Acute) Surgical History Abdominal hysterectomy (07/02/16) [facility]/BSO with pelvic lymph node dissection for L ovarian carcinoma. [facility] Dr. Garcia 07/12/16 Exploratory laparotomy and enterectomy with single reanastomosis for small bowel obstruction. [facility] Dr. Garcia. Colonoscopy - MAC (02/14/18) Family History Mother , AGE 78 Essential hypertension Hyperlipidemia Stroke Father , age 46 Lung cancer Sister No problems noted. Sister No problems noted. Sister No problems noted. Sister No problems noted. Sister No problems noted. Paternal Grandfather Stroke Son No problems noted. 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 Pets and animals: Yes Pets and animals: cat(s) What is your relationship status?: How often do you talk on the phone with friends or family?: three or more times per week How often do you get together with friends or relatives?: three or more times per week Panel score (0-1 are the most socially isolated patients): 2 What type of physical activity do you participate in: walking and irregular exercise Duration: 15-30 minutes/day Frequency: 3-4 times per week Estefany/Sabianist: Congregational Special estefany needs: No Agree to transfusion: Yes Seatbelt use: always Drive intox or ride w/intox delivery driver: No Fire extinguisher in home: Yes Do you feel safe at home: Yes Do you feel safe in your relationship?: Yes Additional Social history: Sam on disability. Money very tight. He is very sad. When they quit drinking after Barabra's first chemo, they lost a lot of friends. Barbara emphasizes the importance of being with her sons and their families. Also very close to her 5 sisters. He has less support than she does. She states she is not afraid of dying. Wants to know what is going on. Willing to try pall radiation and SC CADD pump for pain.
--- NOTE | 2020-05-05 13:59 | CHAPLAIN ---
Barbara was dressed in her own clothes and resting in bed when I visited. Her was with her. He talked more than she did. Barbara told me about her 5 grandchildren and she is hoping she will get to see some of their ballgames soon. Barbara's explained that she has a SBO, and had a large mass removed a while ago and that Barbara has an unusual kind of cancer. She has an NG tube which is draining a lot of fluid. They were waiting for Dr. Cervantes to arrives soon to discuss plans. Dr. Cervantes arrived a few minutes after I left.
[2020-05-05] MEDS: Metoclopramide 10 MG/2 ML VIAL IVP (14:04)
[2020-05-05] MEDS: Methylnaltrexone 12 MG/0.6 ML VIAL SC (15:19)
== END 2020-05-05 16:24 | disposition home health service (06) | DRG 389 ==
PROVIDERS: Admitting Provider Family Medicine; PCP Family Medicine; Visit Provider Family Medicine
DX: K56.690 Other partial intestinal obstruction (principal); C56.2 Malignant neoplasm of left ovary; C79.89 Secondary malignant neoplasm of other specified sites; C79.51 Secondary malignant neoplasm of bone; C77.5 Secondary and unspecified malignant neoplasm of intrapelvic lymph nodes; G89.3 Neoplasm related pain (acute) (chronic); R11.0 Nausea; Z51.5 Encounter for palliative care; F32.9 Major depressive disorder, single episode, unspecified; I10 Essential (primary) hypertension; M32.9 Systemic lupus erythematosus, unspecified; I73.00 Raynaud's syndrome without gangrene; Z79.891 Long term (current) use of opiate analgesic; I73.9 Peripheral vascular disease, unspecified; G25.81 Restless legs syndrome; I73.1 Thromboangiitis obliterans [Buerger's disease]; R35.0 Frequency of micturition; K59.00 Constipation, unspecified; F17.210 Nicotine dependence, cigarettes, uncomplicated
CPT/HCPCS: 99222; 99233; 99239; 99252; U0003; 74018; J2765